=== PATIENT | male | born 1990 | race Caucasian/White ===

== ENCOUNTER 2025-08-16 05:41 | Inpatient (IN) ==
[2025-08-16 06:29] LABS: Hematocrit (blood only) 44.0 % (42.0-52.0); Hemoglobin 14.8 g/dL (14.0-18.0); Immature Granulocytes # (auto) 0.05 K/uL (0.01-0.20); Immature Granulocytes % (auto) 0.5 %; Mean Corpuscular Hemoglobin 28.5 pg (25.0-34.0); Mean Corpuscular Volume 84.8 fL (80.0-100.0); Platelet Count 263 K/uL (130-400); RDW Standard Deviation 39.4 fL (36.4-46.3); Red Blood Count 5.19 M/uL (4.70-6.10); White Blood Count 10.22 K/ul (4.8-10.8)
[2025-08-16 06:34] LABS: Appearance Urine Clear (Clear); Glucose Urine UA Negative (Negative)
[2025-08-16 06:45] LABS: Acetaminophen < 3 ug/ml (10-30); Salicylate < 3.0 mg/dl (3.0-30)
[2025-08-16 06:47] LABS: Alanine Aminotransferase 24.0 U/L (7-52); Albumin Globulin Ratio 1.8 (0.9-2); Albumin Level 4.8 gm/dl (3.4-5.0); Alkaline Phosphatase 66.0 U/L (34-104); Anion Gap 10.0 (3-11); Bilirubin,Total 0.7 mg/dl (0.2-1.0); Blood Urea Nitrogen 14.0 mg/dl (6-23); Calcium 9.8 mg/dl (8.6-10.3); Carbon Dioxide 25.0 mmol/L (21-32); Chloride 103.0 mmol/L (98-107); Creatinine Clr Calc Pharmacy 118.3 ml/min; Globulin 2.7 gm/dl (2.5-4.0); Glucose 144.0 mg/dl (70-99(Fasting)); Potassium 3.7 mmol/L (3.5-5.1); Sodium 138.0 mmol/L (136-145); Total Protein 7.5 gm/dl (6.0-8.3)
[2025-08-16 07:03] LABS: Thyroid Stimulating Hormone 1.924 uIu/ml (0.300-4.500)
[2025-08-16 07:11] LABS: Amphetamines+Metham, Urine Neg (Neg); MDMA (Ecstacy), Urine Neg (Neg); Marijuana, Urine Neg (Neg)
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
--- NOTE | 2025-08-16 09:36 | CT Scan Report ---
CT SCAN OF THE BRAIN WITHOUT IV CONTRAST CLINICAL HISTORY: Altered mental status. COMPARISON STUDY: None. TECHNIQUE: Unenhanced axial CT scan of the brain was performed from the vertex to the skull base. A dose lowering technique was utilized adhering to the principles of ALARA. CT DOSE: 625.8 mGy.cm FINDINGS: Brain parenchyma: No acute intracranial hemorrhage, midline shift or mass effect is present. Molina-whi te matter differentiation is preserved. There are no extra-axial fluid collections. There are no find ings to suggest acute dural sinus thrombosis or acute territorial infarct. Ventricles, sulci, cisterns: There is no hydrocephalus. The basal cisterns are patent. Calvarium: Unremarkable. Sinuses and mastoids: The visualized paranasal sinuses are clear. Moderate bilateral mastoid effusion s are present. Orbits: The bony orbits are grossly intact. IMPRESSION: 1. No acute intracranial findings. 2. Moderate bilateral mastoid effusions. ACT 112: Negative or not required by law. Electronically signed by: Isaac Frazier M.D. 08/16/2025 9:35 AM
[2025-08-16] MEDS ORDERED: ALUMINUM/MAGNESIUM SUSP 30 ML UDC PO PRN (13:03)
[2025-08-16] MEDS ORDERED: MAGNESIUM HYDROXIDE SUSP 30 ML UDC PO PRN (13:03)
[2025-08-16] MEDS ORDERED: SODIUM CHLORIDE 0.65% NA SOLN 45 ML (OCEAN) PRN (13:03)
[2025-08-16] MEDS ORDERED: ACETAMINOPHEN 325 MG TAB PO PRN (13:03)
[2025-08-16] MEDS ORDERED: BISMUTH SUBSALICYLATE 262 MG CHEW PO PRN (13:03)
[2025-08-16] MEDS ORDERED: LORazepam 0.5 MG TAB PO PRN (13:06)
--- NOTE | 2025-08-16 15:48 | History & Physical ---
Date of Service August 16, 2025 Impression / Recommendations Impression Mr. Morales is a 34-year-old man with history of depression, who now presents with features of maryan, including insomnia, talkativeness, flight of ideas, grandiosity, hypersexuality, and hyperreligiosity. Also has an element of paranoia, but did not make any homicidal statements. Fixated on protecting his family though, does have access to guns. Appropriate for admission to the behavioral health unit. He is admitted on a voluntary status. Symptoms are highly consistent with a manic episode, patient has a family history of bipolar disorder. However, the differential diagnosis could include schizophrenia (less likely due to lack of negative symptoms and preservation of affect), substance-induced mood disorder (although UDS was negative, does not rule out intoxication from all synthetic substances), or a medical condition such as hyperthyroidism (TSH normal), intracranial mass (CT head was normal), or in rare cases, pheochromocytoma (blood pressure is elevated, but heart rate is normal. If symptoms change, we could check for urine metanephrines). Since patient was reporting concern about an STD, I will also check an RPR for thoroughness sake, but I do not expect this to be high yield. Presently, no neurologic symptoms to suggest seizure or encephalitis. Level of lability and (mild) agitation did improve with administration of Zyprexa in the emergency room. I discussed scheduling this medication at bedtime, to help him sleep and stabilize his mood. He is currently declining medication, stating "I do not think they need it." I explained that the medicine would be ordered and offered to him, and encouraged him to accept it. Overall, I spent a total of 75 minutes on this patient's care, including review of chart/records, direct evaluation of the patient, ordering medication, coordination with nursing, interdisciplinary team meeting, and documentation. (1) Bipolar 1 disorder, current or most recent episode manic, severe: Plan 08/16/25: Admit to [facility] on a 201 commitment. encouraged to participate in milieu treatment and group therapy schedule Zyprexa 10 mg nightly as needed Zyprexa and Ativan also ordered in case of agitation typical unit PRNs are also ordered, including Vistaril, Tylenol, and medications for GI upset suicide risk is moderate, since the maryan does increase impulsivity, his mood is labile, and he does have a history of suicide attempts. suicide risk precautions ordered (every 15 minute checks) Suicide Risk Level Suicide Risk Level: Moderate (q15 min suicide checks) Suicide Risk Level Comments: suicide Risk Level: Moderate (q15 min suicide checks) Suicide Risk Level Comments: Moderate due to History of suicide attempts, labile mood and impulsivity but feels safe in the hospital, able to contract for safety and agrees to let staff know should if plan or intent develops, or if patient feels unable to remain safe. Risk Factors Assessment Male: Yes : Yes Do You Have Access To A Gun?: Yes Health Problems: No Mental Health Diagnoses: Yes Substance Use Disorders: No Previous Attempt: Yes Family History of Suicide: No Previous Psychiatric Hospitalization: Yes Hopelessness: No Protective Factors Assessment Jainism Beliefs: Yes : Yes Responsible for Young Children: Yes Employed: Yes ([employer]) Stable Relationships: Yes Supportive Family: Yes Good Rapport with Provider: No Psychiatric History Identifying Data CHAPARRITA MORALES is a 34-year-old M who currently lives with his and 2 children, has a history of depression, and was admitted on 08/16/25 13:03 on a 201 voluntary commitment for new onset paranoia, grandiosity and insomnia. Chief Complaint " I am not manic, I was just trying to protect my family". History of Present Illness Patient is a 34-year-old man with a reported history of depression and 1 past psychiatric hospitalization, but not previously known to this department. He was brought to the emergency room by his , due to recent changes in behavior. Once in the emergency room, patient fixated on the possibility of having sexually transmitted disease, since he has a spot on his groin that has been present for more than 10 years. It then came out that he has been more paranoid with some reckless behavior. He has been spending time in the [place] thinking about protecting the family, then locked himself out of the house and broke glass in the doors in order to let himself in, resulting in a cut to his left thumb. In the emergency room, it was noted that he was tangential and hyperverbal. He agreed to sign in on a voluntary for psychiatric valuation. He did receive Zyprexa 5 mg p.o. downstairs before arrival to the [facility]. I met with the patient privately in his room. He says "if I solve my own set up, I know I be smart and it would mean God is giving me a second chance." He spoke of many topics, including his past psychiatric treatment and history of suicide attempts. Also spoke about his childhood and time in the . He says "I have struggled with every single addiction", referring to food, pornography, tobacco, alcohol and marijuana. He said he has not used any substances recently though. Several times, he made hypersexual statements, but was apologetic about it. He also spoke frequently about God and "[place] being my Lord and Savior." He was listening to Muslim music in his room, said it helps him deal with stress. He was guarded about the paranoid content. He said a friend took him off to something (which she would not clarify), and that the patient then sent messages to 2 people, threatening to press charges if they "do anything." He then believes he saw someone stalking him 2 days ago. They were in their car outside his [place]ian[place] and "looked like a ghost" when they saw him walk by. Also believes he saw someone in the [place] when it was dark walking around with a headlamp on. This then led to him patrolling the wells near his house. He denies making any plans to harm anyone. He also denies suicidal ideation. Says he can "see in the shadows", does not clearly is having any true visual hallucinations. Also denies auditory hallucinations. in addition to paranoia about being stopped, he is possibly delusional about the legitimacy of his sons (there from his first marriage, and ways he may not be the father). Since on the unit, he has had a slightly labile affect, with some sudden irritability towards certain staff. He is hyperverbal and tangential, but has remained relatively calm so far. Discussed the idea that he may be experiencing a manic episode, and may have bipolar disorder. He said "I really do not think that is true", and believes he will not need to take medication. Past Psychiatric History Previous Psych History: Patient reports history of 2 suicide attempts. Says the first was the night after he lost custody of his kids. The details of that are unclear, but he says he did spend 3-1/2 months in care home for a crime he did not commit around that time. He said he tried to kill himself by drinking a whole bottle of Everclear. The second suicide attempt he said was after he found his adoptive mother who had . Did not give details of that suicide attempt, as he then tangentially talked about how that was also the time he returned to his timbo and began discussing miracles. He has 1 past hospitalization at [facility], in July 2022, for suicide total ideation (no attempt at that time). At that time, they started him on Wellbutrin and Prozac which he said made him feel "spacey". He does report a history of outpatient therapy, both as a child, and later as an adult after his 2 boys hospitalization. He has not following with any outpatient treatment currently. Reports he has been addicted to tobacco and alcohol in the past, and has tried marijuana. Current Psychiatric Diagnosis: Depression Do You Have Access To A Gun?: Yes History of Previous Suicide Attempt: Yes Past Medication Trials: Wellbutrin, Prozac Past Head Trauma/Neuro History none reported Allergies Allergy/AdvReac Type Severity Reaction Status Date / Time No Known Allergies Allergy Unverified 03/09/19 10:46 Family History Family History of: Doesn't Know Family Mental Health History Comment: patient is adopted, but believes his biological father had bipolar disorder, schizophrenia and marijuana use. Alcohol History Hx of Alcohol Use Over the Past 12 Months: Yes (Occasionally) AUDIT Total Score: 1 Smoking Use Have You Smoked or Used Tobacco Products in the Last 30 Days: No Smoking Status: Never smoker Substance History Hx of Prescription Med Misuse Over the Past 12 Months: No Hx of Over the Counter Med Misuse Over the Past 12 Months: No Hx of Inhalent Misuse Over the Past 12 Months: No Hx of Organic Substance Use Over the Past 12 Months: No Hx of Illegal Substances/Street Drug Use Over Past 12 Months: No Problems as a Result of Past Substance Use Comments: States he was discharged from the [employer] dishonorably 15 years ago Personal History Living Arrangements: Home Living Arrangements Comments: lives with current , and his 2 sons which are from his first marriage. Childhood: patient and his sister were removed from their biological parents custody when patient was 6 months old. He believes there was neglect. He remained in foster care from 6 months to 7 years. He said "it was not easy." He was adopted at age 7. He calls those parents mom and dad. His father was a police communications dispatcher. 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, and possibly combat in the Patient History Medical History (Updated 08/16/25 @ 15:38 by Franchesca Donovan DO) No significant past medical history Family History Other No significant family history Denies family history of Heart disease Hypertension Social History Smoking Status: Never smoker Preferred Language: Kazakh Communication Ability: Effective Concept Artist Required: No Beliefs That Will Affect Care: None marital status: Single Current Living Situation: Alone current occupational status: employed Feels Safe at Home: Yes Gender Identity: Male Assistive Devices: None Review of Systems Review of Systems: All systems reviewed & are unremarkable except as noted in HPI & below Physical Exam Psychiatric: Orientation: alert and oriented x 3 Apperance: appropriately dressed, appropriately groomed and appeared stated age Eye Contact: good eye contact Motor Behavior: steady gait and station and no abnormal motor movements Speech: + pressured speech Hyperverbal. Not loud. Affect: + labile affect Blunted at times, elevated at others, and with sudden irritability fluctuates. Suspicious at times, irritable at other times, elevated or euthymic at others Thought Process: + tangential thought process, + flight of ideas and + looseness of associations Thought Content: + paranoid and + delusions jew preoccupation, some grandiosity Suicidal Thoughts: denies suicidal thoughts, denies suicidal plan and denies suicidal intent Homicidal Thoughts: denies homicidal thoughts, denies homicidal plan and denies homicidal intent Hallucinations: no auditory hallucinations and no visual hallucinations Cognition: recent memory grossly intact, remote memory grossly intact and language grossly intact; + attention not intact Estimated Intelligence: average estimated intelligence and consistent with education level Insight: + impaired insight Judgment: + impaired judgement Vital Signs (Past 24 Hours): Last Vital Signs Temp 36.8 C 08/16/25 14:24 Pulse 76 08/16/25 14:24 Resp 18 08/16/25 14:24 BP 133/83 08/16/25 14:24 Pulse Ox 98 08/16/25 14:24 O2 Del Method Room Air 08/16/25 14:24 Physical Examination: A physical exam was performed in the ED by Camacho Rubio MD for the purposes of medical clearance. I accept that physical as correct and adequate for the purposes of the inpatient physical exam. Results & Data ([facility]) Laboratory Results Laboratory Results - last 24 hr 08/16/25 08/16/25 08/16/25 06:02 06:15 13:05 WBC 10.22 RBC 5.19 Hgb 14.8 Hct 44.0 MCV 84.8 MCH 28.5 MCHC 33.6 RDW Std Deviation 39.4 RDW Coeff of Bravo 12.8 Plt Count 263 MPV 10.9 Immature Gran % (Auto) 0.5 Neut % (Auto) 75.0 Lymph % (Auto) 15.1 [facility] % (Auto) 8.6 Eos % (Auto) 0.2 Baso % (Auto) 0.6 Neut # (Auto) 7.67 H Lymph # (Auto) 1.54 [facility] # (Auto) 0.88 H Eos # (Auto) 0.02 Baso # (Auto) 0.06 Immature Gran # (Auto) 0.05 Sodium 138 Potassium 3.7 Chloride 103 Carbon Dioxide 25 Anion Gap 10 BUN 14 Creatinine 1.15 Est Cr Clr Drug Dosing 118.3 eGFR 84.59 BUN/Creatinine Ratio 12.2 Glucose 144 H Calcium 9.8 Total Bilirubin 0.7 AST 23 ALT 24 Alkaline Phosphatase 66 Total Protein 7.5 Albumin 4.8 Globulin 2.7 Albumin/Globulin Ratio 1.8 TSH 1.924 Urine Color Yellow Urine Appearance Clear Urine pH 6.5 Ur Specific [place] 1.003 Urine Protein Negative Urine Glucose (UA) Negative Urine Ketones Negative Urine Blood Negative Urine Nitrite Negative Urine Bilirubin Negative Urine Urobilinogen Negative Ur Leukocyte Esterase Negative Urine Comment Salicylates < 3.0 L Urine Opiates Screen Neg Ur Methadone, Qual Neg Urine Fentanyl Screen Neg Acetaminophen < 3 L Urine Barbiturates Neg Ur Phencyclidine (PCP) Neg U Amphetamin/Meth Scrn Neg MDMA (Ecstasy) Screen Neg U Benzodiazepines Scrn Neg Ur Cocaine Metabolite Neg U Marijuana (THC) Screen Neg Ethyl Alcohol mg/dL < 10.0 C.trachomatis RNA Pending N.gonorrhoeae RNA Pending SARS-CoV-2, RNA, NAAT NEGATIVE Current Inpatient Medications Current Inpatient Medications: Current Inpatient Medications Acetaminophen (Acetaminophen 325 Mg Tab) 650 mg PO Q4H PRN PRN Reason: Headache or Minor Fever Stop: 09/15/25 13:02 Al Hydrox/Mg Hydrox/Simethicone (Aluminum/Magnesium Susp 30 Ml Udc) 30 ml PO Q4H PRN PRN Reason: GI Upset Stop: 09/15/25 13:02 Bismuth Subsalicylate (Bismuth Subsalicylate 262 Mg Chew) 2 tab PO Q30M PRN PRN Reason: Loose Stool/Diarrhea Stop: 09/15/25 13:02 Hydroxyzine HCl (Hydroxyzine Hcl 25 Mg Tab) 50 mg PO HSZ PRN PRN Reason: Insomnia Stop: 09/15/25 13:02 Hydroxyzine HCl (Hydroxyzine Hcl 25 Mg Tab) 25 mg PO Q4H PRN PRN Reason: Anxiety Stop: 09/15/25 13:02 Lorazepam (Lorazepam 0.5 Mg Tab) 0.5 mg PO Q6 PRN PRN Reason: Severe Anxiety Stop: 09/15/25 13:05 Magnesium Hydroxide (Magnesium Hydroxide Susp 30 Ml Udc) 30 ml PO DAILY PRN PRN Reason: Constipation Stop: 09/15/25 13:02 Olanzapine (Olanzapine 5 Mg Tablet) 5 mg PO Q6 PRN PRN Reason: Agitation Stop: 09/15/25 13:04 Sodium Chloride (Sodium Chloride 0.65% Na Soln 45 Ml ([place])) 1 - 2 sprays NA PRN PRN PRN Reason: Nasal Dryness/Congestion Stop: 09/15/25 13:02
[2025-08-16] MEDS: LORazepam 1 MG TAB PO SCH (18:00)
[2025-08-16] MEDS: OLANZapine 10 MG TAB PO SCH (18:47)
[2025-08-17] MEDS: LORazepam 1 MG TAB PO PRN (01:38)
--- NOTE | 2025-08-17 08:50 | Psychiatric Progress Note ---
Date of Service August 17, 2025 Impression / Recommendations Impression Mr. Bae is a 34-year-old man with history of depression, who now presents with features of maryan, including insomnia, talkativeness, flight of ideas, grandiosity, hypersexuality, and hyperreligiosity. Also has an element of paranoia, but did not make any homicidal statements. Fixated on protecting his family though, does have access to guns. Appropriate for admission to the behavioral health unit. He is admitted on a voluntary status. Symptoms are highly consistent with a manic episode, patient has a family history of bipolar disorder. However, the differential diagnosis could include schizophrenia (less likely due to lack of negative symptoms and preservation of affect), substance-induced mood disorder (although UDS was negative, does not rule out intoxication from all synthetic substances), or a medical condition such as hyperthyroidism (TSH normal), intracranial mass (CT head was normal), or in rare cases, pheochromocytoma (blood pressure is elevated, but heart rate is normal. If symptoms change, we could check for urine metanephrines). Since patient was reporting concern about an STD, I will also check an RPR for thoroughness sake, but I do not expect this to be high yield. Presently, no neurologic symptoms to suggest seizure or encephalitis. A: in the evening yesterday, I added Ativan 1 mg 3 times daily after learning that he had impulsive behavior and was found in another peer's room. He did sleep well overnight after getting several doses of medication in the evening. I continue to educate about symptoms that indicate bipolar disorder, and my recommendation for medication management. Strongly encouraged him to take medicine, and let me know if there are any side effects, and we can change to medicine to something more tolerable to him. However, I do not think the grogginess this morning was necessarily a side effect, since he was catching up after 3 days of not sleeping. Patient said he will consider it, and is aware that staff will be continue to offer meds to him. Overall, I spent a total of 45 minutes on this patient's care, including review of chart/records, direct evaluation of the patient, ordering medication, coordination with nursing, interdisciplinary team meeting, and documentation. (1) Bipolar 1 disorder, current or most recent episode manic, severe: Plan 08/17/25: Continue Ativan 1 mg 3 times daily and Zyprexa 10 mg nightly as needed Ativan Zyprexa also ordered. patient did except medicines yesterday, but denied them this morning. If he continuously denies medication we may need to pursue an involuntary commitment and forced medications, Given the severity of his symptoms. Staff is gathering collateral from his today. 08/16/25: Admit to [facility] on a 201 commitment. encouraged to participate in milieu treatment and group therapy schedule Zyprexa 10 mg nightly as needed Zyprexa and Ativan also ordered in case of agitation typical unit PRNs are also ordered, including Vistaril, Tylenol, and medications for GI upset suicide risk is moderate, since the maryan does increase impulsivity, his mood is labile, and he does have a history of suicide attempts. suicide risk precautions ordered (every 15 minute checks) Suicide Risk Level Suicide Risk Level: Moderate (q15 min suicide checks) Suicide Risk Level Comments: suicide Risk Level: Moderate (q15 min suicide checks) Suicide Risk Level Comments: Moderate due to History of suicide attempts, labile mood and impulsivity but feels safe in the hospital, able to contract for safety and agrees to let staff know should if plan or intent develops, or if patient feels unable to remain safe. 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) Stable Relationships: Yes Supportive Family: Yes Good Rapport with Provider: No Interval History Identifying Information Mr. Bae is a 34-year-old man with history of depression, who now presents with features of maryan, including insomnia, talkativeness, flight of ideas, grandiosity, hypersexuality, and hyperreligiosity. He is admitted on a voluntary status. Chief Complaint " what if what I predict is real". Review of Systems Sleep Information Total Hours of Sleep: 8.5 Meal Information Percent Meal Consumed - Dinner: 75 Subjective Subjective Patient was seen & assessed and interval progress reviewed with nursing and social work per report: elopement precautions added yesterday was pounding on doors and punching codes into door - said someone was going to be murdered then said he needs to "elope" (ie - get ) and make love in order to prevent the murder had a difficult evening - poor boundaries, hypersexual needed redirected out of female peer's room slept 8.5hours , after taking zyprexa 5mg PRn and scheduled 10mg, ativan 1mg scheduled and later 0.5mg PRN refusing meds this AM says he is "fine, just tired" but also won't lay down to rest labile affect - irritable, tearful frequently at the nurse's station taking apart remote, headphones, etc attended self-awareness group did call to check on him last evening I met with the patient privately in the group room, per his request. No other patients were present. He said "I have been feeling really good." He continues to feel that he is not manic and that the "things I am predicting are real." He believes his mother is dying his cousin and his uncle are dying, and he will be the executor to one of their states, resulting in a large sum of money coming to him. When I asked how he knows that they are dying he said "you are going to have to watch the news." Patient said he took meds last night but felt groggy this morning, so he does not want to take them again. He said he plans on his because "I never left her. Because she cannot love someone without loving yourself", and he says he just started loving himself a few days ago. patient changed topics multiple times. At 1 point, he said he is "said a bear trap" and metaphorical away to catch the people responsible for 3 murders. Another point, he said he had a bad relationship with his biological father, and that that "that is all I am going to say." He confirmed that he does believe he needs to elope/get again. Discussed that he was in a peer's room last night, and he said that he was just looking for someone to talk to, and did not "do anything bad." He expressed understanding that this absolutely cannot happen again. Physical Exam Psychiatric Orientation: alert and oriented x 3 Apperance: appropriately dressed, appropriately groomed and appeared stated age Eye Contact: good eye contact Motor Behavior: steady gait and station and no abnormal motor movements Speech: + pressured speech Affect: + labile affect Thought Process: + tangential thought process, + flight of ideas and + looseness of associations Thought Content: + paranoid and + delusions Suicidal Thoughts: denies suicidal thoughts, denies suicidal plan and denies suicidal intent Homicidal Thoughts: denies homicidal thoughts, denies homicidal plan and denies homicidal intent Hallucinations: no auditory hallucinations and no visual hallucinations Cognition: recent memory grossly intact, remote memory grossly intact and language grossly intact; + attention not intact Estimated Intelligence: average estimated intelligence and consistent with education level Insight: + impaired insight Judgment: + impaired judgement Vital Signs (Past 24 Hours) Last Vital Signs Temp 36.8 C 08/16/25 14:24 Pulse 76 08/16/25 14:24 Resp 18 08/16/25 14:24 BP 133/83 08/16/25 14:24 Pulse Ox 98 08/16/25 14:24 O2 Del Method Room Air 08/16/25 14:24 A physical exam was performed in the ED by Camacho Rubio MD for the purposes of medical clearance. I accept that physical as correct and adequate for the purposes of the inpatient physical exam. Results & Data ([facility]) Laboratory Results Laboratory Results - last 24 hr 08/16/25 08/16/25 06:15 13:05 C.trachomatis RNA Pending N.gonorrhoeae RNA Pending SARS-CoV-2, RNA, NAAT NEGATIVE Current Inpatient Medications Current Inpatient Medications: Current Inpatient Medications Acetaminophen (Acetaminophen 325 Mg Tab) 650 mg PO Q4H PRN PRN Reason: Headache or Minor Fever Stop: 09/15/25 13:02 Al Hydrox/Mg Hydrox/Simethicone (Aluminum/Magnesium Susp 30 Ml Udc) 30 ml PO Q4H PRN PRN Reason: GI Upset Stop: 09/15/25 13:02 Bismuth Subsalicylate (Bismuth Subsalicylate 262 Mg Chew) 2 tab PO Q30M PRN PRN Reason: Loose Stool/Diarrhea Stop: 09/15/25 13:02 Hydroxyzine HCl (Hydroxyzine Hcl 25 Mg Tab) 50 mg PO HSZ PRN PRN Reason: Insomnia Stop: 09/15/25 13:02 Hydroxyzine HCl (Hydroxyzine Hcl 25 Mg Tab) 25 mg PO Q4H PRN PRN Reason: Anxiety Stop: 09/15/25 13:02 Lorazepam (Lorazepam 1 Mg Tab) 1 mg PO TID DARRION Stop: 09/15/25 17:59 Last Admin: 08/16/25 20:26 Dose: 1 mg Lorazepam (Lorazepam 1 Mg Tab) 1 mg PO Q6 PRN PRN Reason: Severe Anxiety Stop: 09/15/25 13:05 Last Admin: 08/17/25 01:38 Dose: 1 mg Magnesium Hydroxide (Magnesium Hydroxide Susp 30 Ml Udc) 30 ml PO DAILY PRN PRN Reason: Constipation Stop: 09/15/25 13:02 Olanzapine (Olanzapine 5 Mg Tablet) 5 mg PO Q6 PRN PRN Reason: Agitation Stop: 09/15/25 13:04 Last Admin: 08/16/25 19:15 Dose: 5 mg Olanzapine (Olanzapine 10 Mg Tab) 10 mg PO HS DARRION Stop: 09/15/25 21:59 Last Admin: 08/16/25 20:11 Dose: Not Given Sodium Chloride (Sodium Chloride 0.65% Na Soln 45 Ml ([place])) 1 - 2 sprays NA PRN PRN PRN Reason: Nasal Dryness/Congestion Stop: 09/15/25 13:02 Mental Health & Subst Abuse Tx Therapist Name of Therapist: None Unload Associate Name of Unload Associate: None
[2025-08-17 12:27] LABS: Chlam trach RNA(Genit,Ureth,Ur Not Detected (NotDetected); GC(Neis gon)RNA(Genit,Ureth,Ur Not Detected (NotDetected)
--- NOTE | 2025-08-18 08:41 | Psychiatric Progress Note ---
Date of Service August 18, 2025 Impression / Recommendations Impression Mr. Bae is a 34-year-old man with history of depression, who now presents with features of maryan, including insomnia, talkativeness, flight of ideas, grandiosity, hypersexuality, and hyperreligiosity. Also has an element of paranoia, but did not make any homicidal statements. Fixated on protecting his family though, does have access to guns. Appropriate for admission to the behavioral health unit. He is admitted on a voluntary status. Symptoms are highly consistent with a manic episode, patient has a family history of bipolar disorder. However, the differential diagnosis could include schizophrenia (less likely due to lack of negative symptoms and preservation of affect), substance-induced mood disorder (although UDS was negative, does not rule out intoxication from all synthetic substances), or a medical condition such as hyperthyroidism (TSH normal), intracranial mass (CT head was normal), or in rare cases, pheochromocytoma (blood pressure is elevated, but heart rate is normal. If symptoms change, we could check for urine metanephrines). Since patient was reporting concern about an STD, I will also check an RPR for thoroughness sake, but I do not expect this to be high yield. Presently, no neurologic symptoms to suggest seizure or encephalitis. A: Ongoing maryan, but starting to get some sleep. In interest of getting patient off Ativan before discharge, going to decrease the dose to 0.5 mg 3 times daily. I will also increase Zyprexa, adding a morning dose of 5 mg and keeping the evening at 10 mg. I also discussed with the patient that his blood pressure has been consistently elevated. Reviewed risks and benefits of starting propranolol, patient was agreeable. Start 10 mg 3 times daily. I also gave him an order for patient be allowed to cut his nails with supervision. Medically necessary private room due to hypersexuality and impulsive behavior. Overall, I spent a total of 40 minutes on this patient's care, including review of chart/records, direct evaluation of the patient, ordering medication, coordination with nursing, interdisciplinary team meeting, and documentation. (1) Bipolar 1 disorder, current or most recent episode manic, severe: Plan 08/18/25: Decrease his Ativan to 0.5 mg 3 times daily. Add Zyprexa 5 mg every morning, and continue 10 mg nightly start propranolol 10 mg 3 times daily 08/17/25: Continue Ativan 1 mg 3 times daily and Zyprexa 10 mg nightly as needed Ativan Zyprexa also ordered. patient did accept medicines yesterday, but denied them this morning. If he continuously denies medication we may need to pursue an involuntary commitment and forced medications, Given the severity of his symptoms. Staff is gathering collateral from his today. 08/16/25: Admit to [facility] on a 201 commitment. encouraged to participate in milieu treatment and group therapy schedule Zyprexa 10 mg nightly as needed Zyprexa and Ativan also ordered in case of agitation typical unit PRNs are also ordered, including Vistaril, Tylenol, and medications for GI upset suicide risk is moderate, since the maryan does increase impulsivity, his mood is labile, and he does have a history of suicide attempts. suicide risk precautions ordered (every 15 minute checks) Suicide Risk Level Suicide Risk Level: Moderate (q15 min suicide checks) Suicide Risk Level Comments: suicide Risk Level: Moderate (q15 min suicide checks) Suicide Risk Level Comments: Moderate due to History of suicide attempts, labile mood and impulsivity but feels safe in the hospital, able to contract for safety and agrees to let staff know should if plan or intent develops, or if patient feels unable to remain safe. Risk Factors Assessment Male: Yes : Yes Do You Have Access To A Gun?: Yes Health Problems: No Mental Health Diagnoses: Yes Substance Use Disorders: No Previous Attempt: Yes Family History of Suicide: No Previous Psychiatric Hospitalization: Yes Hopelessness: No Protective Factors Assessment Rastafarian Beliefs: Yes : Yes Responsible for Young Children: Yes Employed: Yes ([employer]) Stable Relationships: Yes Supportive Family: Yes Good Rapport with Provider: No Interval History Identifying Information Mr. Bae is a 34-year-old man with history of depression, who now presents with features of maryan, including insomnia, talkativeness, flight of ideas, grandiosity, hypersexuality, and hyperreligiosity. He is admitted on a voluntary status. Chief Complaint "I am doing good, no complaints.". Review of Systems Sleep Information Total Hours of Sleep: 9.75 Meal Information Percent Meal Consumed - Breakfast: 100 Percent Meal Consumed - Lunch: 100 Percent Meal Consumed - Dinner: 100 Subjective Subjective Patient was seen & assessed and interval progress reviewed with treatment team per report: declined meds in AM then did take afternoon and HS meds. still has inappropriate boundaries - knocks on peer's doors continues to be delusional at times still voicing concern that his sons aren't his, and that he might want a divorce napped during self-awareness group slept 9.75 hours thought he was going to be discharged at midnight last night ativan PRN at 01:38 accepted meds this AM without contest Patient was napping at first, I met with him shortly before lunchtime in his room. He reports he is feeling well. Denies anxiety or paranoia. He says "what worry?". Says he has except if people are going to be hurt if he cannot control it. Also says though that he has a special duty to try to convert people to Religion. He attempted to interrogate me about my beliefs and "do you have a relationship with the Lord [place]". He responded to boundary setting without issue or escalation. He said getting rest has been helpful. He compared me to a celebrity that he thought I looks like (Mahogany Farris, this may be related to seeing him anytime but I think maybe is Mahogany). He acknowledges he had a good visit with his , but still is unsure whether the marriage will continue. Physical Exam Psychiatric Orientation: alert and oriented x 3 Apperance: appropriately dressed, appropriately groomed and appeared stated age Eye Contact: good eye contact Motor Behavior: steady gait and station and no abnormal motor movements Thought Process: + looseness of associations Thought Content: + paranoid and + delusions Suicidal Thoughts: denies suicidal thoughts, denies suicidal plan and denies suicidal intent Homicidal Thoughts: denies homicidal thoughts, denies homicidal plan and denies homicidal intent Hallucinations: no auditory hallucinations and no visual hallucinations Cognition: recent memory grossly intact, remote memory grossly intact and language grossly intact Estimated Intelligence: average estimated intelligence and consistent with education level Insight: + impaired insight Judgment: + impaired judgement Vital Signs (Past 24 Hours) Last Vital Signs Temp 36.4 C L 08/18/25 06:00 Pulse 101 H 08/18/25 06:18 Resp 16 08/18/25 06:00 BP 157/91 H 08/18/25 06:18 Pulse Ox 95 08/18/25 06:00 O2 Del Method Room Air 08/18/25 06:00 Results & Data ([facility]) Laboratory Results Laboratory Results - last 24 hr 08/16/25 06:15 C.trachomatis RNA Not Detected N.gonorrhoeae RNA Not Detected Current Inpatient Medications Current Inpatient Medications: Current Inpatient Medications Acetaminophen (Acetaminophen 325 Mg Tab) 650 mg PO Q4H PRN PRN Reason: Headache or Minor Fever Stop: 09/15/25 13:02 Al Hydrox/Mg Hydrox/Simethicone (Aluminum/Magnesium Susp 30 Ml Udc) 30 ml PO Q4H PRN PRN Reason: GI Upset Stop: 09/15/25 13:02 Bismuth Subsalicylate (Bismuth Subsalicylate 262 Mg Chew) 2 tab PO Q30M PRN PRN Reason: Loose Stool/Diarrhea Stop: 09/15/25 13:02 Hydroxyzine HCl (Hydroxyzine Hcl 25 Mg Tab) 50 mg PO HSZ PRN PRN Reason: Insomnia Stop: 09/15/25 13:02 Hydroxyzine HCl (Hydroxyzine Hcl 25 Mg Tab) 25 mg PO Q4H PRN PRN Reason: Anxiety Stop: 09/15/25 13:02 Lorazepam (Lorazepam 1 Mg Tab) 1 mg PO TID DARRION Stop: 09/15/25 17:59 Last Admin: 08/18/25 07:49 Dose: 1 mg Lorazepam (Lorazepam 1 Mg Tab) 1 mg PO Q6 PRN PRN Reason: Severe Anxiety Stop: 09/15/25 13:05 Last Admin: 08/17/25 01:38 Dose: 1 mg Magnesium Hydroxide (Magnesium Hydroxide Susp 30 Ml Udc) 30 ml PO DAILY PRN PRN Reason: Constipation Stop: 09/15/25 13:02 Nicotine Polacrilex (Nicotine Polacrilex 2 Mg Gum) 1 piece MT Q2H PRN PRN Reason: nicotine craving Stop: 09/16/25 13:20 Olanzapine (Olanzapine 5 Mg Tablet) 5 mg PO Q6 PRN PRN Reason: Agitation Stop: 09/15/25 13:04 Last Admin: 08/18/25 08:02 Dose: 5 mg Olanzapine (Olanzapine 10 Mg Tab) 10 mg PO HS DARRION Stop: 09/15/25 21:59 Last Admin: 08/17/25 20:38 Dose: 10 mg Sodium Chloride (Sodium Chloride 0.65% Na Soln 45 Ml ([place])) 1 - 2 sprays NA PRN PRN PRN Reason: Nasal Dryness/Congestion Stop: 09/15/25 13:02 Mental Health & Subst Abuse Tx Psychiatrist Name of Psychiatrist: [facility] Psychiatric Appointment Comment: previously a patient Therapist Name of Therapist: [facility] Therapy Appointment Comment: previously a patient 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
[2025-08-18] MEDS: LORazepam 0.5 MG TAB PO SCH (13:41)
[2025-08-18] MEDS: PROPRANOLOL HCL 10 MG TAB PO SCH (13:41)
[2025-08-19 09:14] LABS: Cholesterol 198.0 mg/dl (0-200); HDL Cholesterol 42.0 mg/dl; Triglycerides 142.0 mg/dl (0-150)
[2025-08-19 10:38] LABS: Hemoglobin A1C 5.3 % (4.5-5.6)
--- NOTE | 2025-08-19 16:00 | Psychiatric Progress Note ---
Date of Service August 19, 2025 Impression / Recommendations Impression Mr. Bae is a 34-year-old man with history of depression, who now presents with features of maryan, including insomnia, talkativeness, flight of ideas, grandiosity, hypersexuality, and hyperreligiosity. Also has an element of paranoia, but did not make any homicidal statements. Fixated on protecting his family though, does have access to guns. Appropriate for admission to the behavioral health unit. He is admitted on a voluntary status. Symptoms are highly consistent with a manic episode, patient has a family history of bipolar disorder. A: Patient continues to be intrusive with peers and labile. Concern for some grandiosity. Presents limited insight into his condition and presentation. Demonstrating a decreased need for sleep. Concern for manic episode with classic presentation. Continues to have disrupted sleep and requiring PRNs for anxiety and agitation management. Patient has complaints of sharp testicular pain that is positional and reports relatively new onset. Medically necessary private room due to hypersexuality and impulsive behavior. Overall, I spent a total of 40 minutes on this patient's care, including review of chart/records, direct evaluation of the patient, ordering medication, coordination with nursing, interdisciplinary team meeting, gathered collateral from pt's family and documentation. (1) Bipolar 1 disorder, current or most recent episode manic, severe: Plan 08/19/2025: Increase lorazepam to 2 mg at bedtime Increase Olanzapine to 15mg at bedtime Hospitalist consult for urogenital evaluation 08/17/25: Continue Ativan 1 mg 3 times daily and Zyprexa 10 mg nightly as needed Ativan Zyprexa also ordered. patient did except medicines yesterday, but denied them this morning. If he continuously denies medication we may need to pursue an involuntary commitment and forced medications, Given the severity of his symptoms. Staff is gathering collateral from his today. 08/17/25: Continue Ativan 1 mg 3 times daily and Zyprexa 10 mg nightly as needed Ativan Zyprexa also ordered. patient did except medicines yesterday, but denied them this morning. If he continuously denies medication we may need to pursue an involuntary commitment and forced medications, Given the severity of his symptoms. Staff is gathering collateral from his today. 08/16/25: Admit to [facility] on a 201 commitment. encouraged to participate in milieu treatment and group therapy schedule Zyprexa 10 mg nightly as needed Zyprexa and Ativan also ordered in case of agitation typical unit PRNs are also ordered, including Vistaril, Tylenol, and medications for GI upset suicide risk is moderate, since the maryan does increase impulsivity, his mood is labile, and he does have a history of suicide attempts. suicide risk precautions ordered (every 15 minute checks) Suicide Risk Level Suicide Risk Level: Moderate (q15 min suicide checks) Suicide Risk Level Comments: suicide Risk Level: Moderate (q15 min suicide checks) Suicide Risk Level Comments: Moderate due to History of suicide attempts, labile mood and impulsivity but feels safe in the hospital, able to contract for safety and agrees to let staff know should if plan or intent develops, or if patient feels unable to remain safe. Risk Factors Assessment Male: Yes : Yes Do You Have Access To A Gun?: Yes Health Problems: No Mental Health Diagnoses: Yes Substance Use Disorders: No Previous Attempt: Yes Family History of Suicide: No Previous Psychiatric Hospitalization: Yes Hopelessness: No Protective Factors Assessment Oriental Orthodox Beliefs: Yes : Yes Responsible for Young Children: Yes Employed: Yes ([employer]) Stable Relationships: Yes Supportive Family: Yes Good Rapport with Provider: No Interval History Identifying Information Mr. Bae is a 34-year-old man with history of depression, who now presents with features of maryan, including insomnia, talkativeness, flight of ideas, grandiosity, hypersexuality, and hyperreligiosity. He is admitted on a voluntary status. Chief Complaint Maryan, psychosis Review of Systems Sleep Information Total Hours of Sleep: 5.5 Sleep Comments: Broken up sleep. Meal Information Percent Meal Consumed - Breakfast: 100 Percent Meal Consumed - Lunch: 100 Percent Meal Consumed - Dinner: 100 Subjective Subjective Patient was seen & assessed and interval progress reviewed with treatment team nursing and social work The patient reports being here because he needed a "blood test for STDs". He reports being worried for his child safety and that he lost sleep for a few days. 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 He reports the book is "very detailed" and shows me what he wrote. As noted in the book there are some disorganized s treams of thoughts and many hypothetical scenarios including one where somebody staged murder. The general theme of his book is reflecting on past traumas. He reports sleeping well and that his "thoughts are more direct". He discusses recent stressors including finding out that his ex- was cheating on him while he was away in the and that there may have been possible incest in the family. At times in the interview, he would request reassurance we are aligned on his care. He denies physical symptoms of anxiety including shortness of breath or chest pain. He denies having any kind of mental anxiety or anxious ruminations. He reports past PTSD and depression diagnoses and was at 1 point on Wellbutrin 75 mg and up to 40 mg of Prozac however he stopped the medications and "self weaned" in July 2024. Rates energy 5 out of 10. He reports a plan to go back to work and spend time with his children. He reports past alcohol problem last in 2018, currently drinks however denies excess consumption. Says he is here for a medical reason and is asking for investigation into a mass in one of his testicles that occasionally causes pain. Pt's called with pt permission (DELORES [phone]) 20 min: updated about care plan. discussed early onset of depression in his teenage years. family h/o bipolar disorder. no past maryan. Explained symptoms, diagnoses, estimated length of stay, prognosis, and medications. Physical Exam Mental Examination Appearance: Unkempt Eye Contact: Maintains Eye Contact Motor Behavior: Pacing and Restless Speech: Tangential and Rambling Mood: Euthymic and Calm Affect: Congruent and Constricted Thought Process: Tangential Hallucinations: None Insight: Poor Judgement: Poor Vital Signs (Past 24 Hours) Last Vital Signs Temp 36.8 C 08/18/25 20:45 Pulse 56 L 08/19/25 13:43 Resp 18 08/19/25 06:36 BP 124/80 08/19/25 13:43 Pulse Ox 98 08/19/25 06:36 O2 Del Method Room Air 08/19/25 06:36 A physical exam was performed in the ED by Camacho Rubio MD for the purposes of medical clearance. I accept that physical as correct and adequate for the purposes of the inpatient physical exam. Results & Data ([facility]) Laboratory Results Laboratory Results - last 24 hr 08/19/25 08:18 Estimat Average Glucose 105 Hemoglobin A1c 5.3 Triglycerides 142 Cholesterol 198 LDL Cholesterol, Calc 128 VLDL Cholesterol, Calc 28 HDL Cholesterol 42 Cholesterol/HDL Ratio 4.7 Current Inpatient Medications Current Inpatient Medications: Current Inpatient Medications Acetaminophen (Acetaminophen 325 Mg Tab) 650 mg PO Q4H PRN PRN Reason: Headache or Minor Fever Stop: 09/15/25 13:02 Al Hydrox/Mg Hydrox/Simethicone (Aluminum/Magnesium Susp 30 Ml Udc) 30 ml PO Q4H PRN PRN Reason: GI Upset Stop: 09/15/25 13:02 Bismuth Subsalicylate (Bismuth Subsalicylate 262 Mg Chew) 2 tab PO Q30M PRN PRN Reason: Loose Stool/Diarrhea Stop: 09/15/25 13:02 Hydroxyzine HCl (Hydroxyzine Hcl 25 Mg Tab) 50 mg PO HSZ PRN PRN Reason: Insomnia Stop: 09/15/25 13:02 Hydroxyzine HCl (Hydroxyzine Hcl 25 Mg Tab) 25 mg PO Q4H PRN PRN Reason: Anxiety Stop: 09/15/25 13:02 Lorazepam (Lorazepam 1 Mg Tab) 1 mg PO Q6 PRN PRN Reason: Severe Anxiety Stop: 09/15/25 13:05 Last Admin: 08/17/25 01:38 Dose: 1 mg Lorazepam (Lorazepam 0.5 Mg Tab) 0.5 mg PO TID [facility] Stop: 09/17/25 13:59 Last Admin: 08/19/25 13:42 Dose: 0.5 mg Lorazepam (Lorazepam 1 Mg Tab) 2 mg PO HS DARRION Stop: 09/18/25 21:59 Magnesium Hydroxide (Magnesium Hydroxide Susp 30 Ml Udc) 30 ml PO DAILY PRN PRN Reason: Constipation Stop: 09/15/25 13:02 Nicotine Polacrilex (Nicotine Polacrilex 2 Mg Gum) 1 piece MT Q2H PRN PRN Reason: nicotine craving Stop: 09/16/25 13:20 Olanzapine (Olanzapine 5 Mg Tablet) 5 mg PO Q6 PRN PRN Reason: Agitation or psychosis Stop: 09/15/25 13:04 Last Admin: 08/19/25 13:42 Dose: 5 mg Olanzapine (Olanzapine 5 Mg Tablet) 5 mg PO QAM [facility] Stop: 09/18/25 08:59 Last Admin: 08/19/25 07:45 Dose: 5 mg Olanzapine (Olanzapine 5 Mg Tablet) 15 mg PO HS DARRION Stop: 09/18/25 21:59 Propranolol HCl (Propranolol Hcl 10 Mg Tab) 10 mg PO TID DARRION Stop: 09/17/25 13:59 Last Admin: 08/19/25 13:43 Dose: Not Given Sodium Chloride (Sodium Chloride 0.65% Na Soln 45 Ml ([place])) 1 - 2 sprays NA PRN PRN PRN Reason: Nasal Dryness/Congestion Stop: 09/15/25 13:02 Mental Health & Subst Abuse Tx Psychiatrist Name of Psychiatrist: Joanna Psychiatrist's Date Of Appointment With Psychiatric Provider: TBD Psychiatric Appointment Comment: Blanca Ribeiro through [email or web address] must schedule due to using [facility]. Therapist Name of Therapist: Joanna Therapist's Date of Therapist Appointment: TBD Therapy Appointment Comment: Blanca Ribeiro through [email or web address] must schedule due to using [facility]. Database Security Administrator Name of Database Security Administrator: BERNIE Melinda - Blanca Ribeiro Phone Number for Database Security Administrator: Office: [phone] & Blanca Ribeiro Date of Appointment with Database Security Administrator: 08/28/25 Time of Appointment with Database Security Administrator: 12:30PM Case Management Appointment Comment: Must bring last three pay stubs. Rios to schedule [facility] appointment. Post Discharge Appointments Primary Care Physician Name Of Family Doctor/PCP: N/A Contact Information Discharge Discharge [address]: [address] [place] [address] [place] [id number]
[2025-08-19] MEDS: LORazepam 1 MG TAB PO SCH (21:05)
--- NOTE | 2025-08-20 10:41 | Hospitalist Consultation ---
Date of Consultation August 20, 2025 Assessment & Plan (1) Testicular pain, unspecified: (2) Bipolar 1 disorder, current or most recent episode manic, severe: Plan This patient is a 34-year-old male who was admitted to the behavioral health unit. We were consulted for testicular pain. #Testicular pain ? Positional Pain-free at time of consult Urinalysis ordered, pending No burning, dysuria, penile discharge, scrotal swelling, lesions, or erythema Sexually active with spouse as of a couple weeks ago Gonorrhea/chlamydia urine ordered, pending Offered to obtain scrotal ultrasound to assess for testicular mass; however, patient declined at this time We will follow-up on urinalysis, GC, and chlamydia testing Given no leukocytosis, fever, and resolution of symptoms, will defer antibiotics at this time A.m. CBC, BMP #Bipolar 1 disorder Treatment per primary team Thank you for allowing us to participate in the care of this patient, please reach out with any questions or concerns; we will continue to follow. Supervising Physician Co-Signing Physician Notes Patient seen and examined, chart reviewed, case discussed with Prashant Morales PA-C and I agree with the assessment and plan as above except as otherwise noted above. General: A&Ox3. NAD. Cooperative. HEENT: Atraumatic, normocephalic. Pulm: ymmetrical chest rise. No increase work of breathing. No respiratory distress. Seen on BHU. Reviewed PA exam and discussion. Pt is no longer having any pain. Reports pain was positional. Does still wish for UTI/G/C testing. No dysuria/discharge. Reports he was initially concerned that it was a swab test, if it can be done via UA would like this. G/C added. Denies ongoing testicular pain. Declines scrotal-US. Nontoxic appearing. Agree w above History of Present Illness Reason for Consultation: Testicular pain Requesting Physician: Dusty Shipman MD Attending Physician: Dusty Shipman MD History of Present Illness Mr. Bae is a 34-year-old male with PMH of bipolar 1 disorder. He is currently hospitalized in the behavioral health unit for maryan, insomnia, and reported homicidal statements. Hospital medicine was consulted for testicular pain. Patient first noticed the testicular pain after waking up this morning, but reports he is having 0 / 10 pain at present. This morning, he had a dull pain in the testicle with occasional radiation down the leg or up towards the stomach. He is unsure if that pain is positional. He reports it was bilateral and not worse on one side. No burning with urination, blood in his urine, penile discharge. No history of UTIs. No history of STDs to his knowledge. Patient was previously sexually active with his as of a couple weeks ago. They have had unprotected sex in the past. He denies prior history of hernias. In regard to prior injuries, patient reports he slipped and fell on ice recently and has pain in his backside, but no other injuries to the abdomen or pelvis. He denies prior history of abdominal/testicular surgeries. No fevers or dysuria. He denies any redness or lesions noticed on the scrotum. He is unsure if he has felt any new masses. Patient reports he has no allergies to medications. He is unsure if he is vaccinated for mumps/MMR. ROS: Patient endorses testicular pain (which has fully resolved). Patient denies fever, chills, night sweats, chest pain, chest palpitations, SOB, cough, abdominal pain, N/V/D, testicular swelling, burning with urination, dysuria, blood in the urine, penile discharge, or changes in bowel habits. Allergies Allergy/AdvReac Type Severity Reaction Status Date / Time No Known Allergies Allergy Unverified 03/09/19 10:46 Home Medications Medication Instructions Recorded Confirmed Type No Known Home Medications 08/16/25 08/16/25 History Patient History Medical History (Updated 08/20/25 @ 15:53 by Prashant Morales PA-C) No significant past medical history Family History Other No significant family history Denies family history of Heart disease Hypertension Social History Smoking Status: Never smoker Preferred Language: British Communication Ability: Effective Project Manager/Team Coach Required: No Beliefs That Will Affect Care: None marital status: Single Current Living Situation: Alone current occupational status: employed Feels Safe at Home: Yes Gender Identity: Male Assistive Devices: None Review of Systems Review of Systems: See HPI above Physical Exam Physical Exam: Mr. Bae is assessed with male canned food reconditioning inspector (Dr. Shipman) at bedside. General: no acute distress; non-toxic appearing; cooperative; SpO2 96% on RA : Cremasteric reflexes present bilaterally; no masses or asymmetry appreciated on exam; negative for inguinal lymphadenopathy; testicles do not appear swollen or erythematous; they are not tender to palpation; no rashes appreciated VSS Results & Data Results & Data Vital Signs (Past 12 Hours) Vital Signs Temp Pulse Pulse Resp BP Pulse Ox O2 Del Method 08/20/25 06:48 73 123/83 96 Room Air 08/20/25 06:46 36.8 C 72 18 122/78 95 Room Air PG Care Time/CCT Total # of Minutes Spent Total Time Spent with Patient: Total time spent is greater than 50% in coordination of care (as documented) at patient's floor/unit and/or counseling patient: [place] [address] IN/OBS CONSULT LVL 4,60M Patient Type Established Medical Decision Making High Complexity Diagnoses Testicular pain, unspecified N50.819 Bipolar 1 disorder, current or most recent episode manic, severe F31.13
[2025-08-20] MEDS ORDERED: NICOTINE POLACRILEX 2 MG GUM MT PRN (13:13)
--- NOTE | 2025-08-20 14:04 | Psychiatric Progress Note ---
Date of Service August 20, 2025 Impression / Recommendations Impression Mr. Bae is a 34-year-old man with history of depression, who now presents with features of maryan, including insomnia, talkativeness, flight of ideas, grandiosity, hypersexuality, and hyperreligiosity. Also has an element of paranoia, but did not make any homicidal statements. Fixated on protecting his family though, does have access to guns. Appropriate for admission to the behavioral health unit. He is admitted on a voluntary status. Symptoms are highly consistent with a manic episode, patient has a family history of bipolar disorder. A: Pt presents slightly improved sleep on medications and demonstrating a decreased need for sleep overall. Thought process appears to be more reality based today. Continues to demonstrate poor insight, poor boundaries with peers, and increased irritability. Medically necessary private room due to hypersexuality and impulsive behavior. Overall, I spent a total of 40 minutes on this patient's care, including review of chart/records, direct evaluation of the patient, ordering medication, coordination with nursing, interdisciplinary team meeting, gathered collateral from pt's family and documentation. (1) Bipolar 1 disorder, current or most recent episode manic, severe: Plan 08/20/2025: Start nicotine gum 2 mg every 2 hours as needed Urinalysis 08/19/2025: Increase lorazepam to 2 mg at bedtime Increase Olanzapine to 15mg at bedtime Hospitalist consult for urogenital evaluation 08/17/25: Continue Ativan 1 mg 3 times daily and Zyprexa 10 mg nightly as needed Ativan Zyprexa also ordered. patient did except medicines yesterday, but denied them this morning. If he continuously denies medication we may need to pursue an involuntary commitment and forced medications, Given the severity of his symptoms. Staff is gathering collateral from his today. 08/17/25: Continue Ativan 1 mg 3 times daily and Zyprexa 10 mg nightly as needed Ativan Zyprexa also ordered. patient did except medicines yesterday, but denied them this morning. If he continuously denies medication we may need to pursue an involuntary commitment and forced medications, Given the severity of his symptoms. Staff is gathering collateral from his today. 08/16/25: Admit to [facility] on a 201 commitment. encouraged to participate in milieu treatment and group therapy schedule Zyprexa 10 mg nightly as needed Zyprexa and Ativan also ordered in case of agitation typical unit PRNs are also ordered, including Vistaril, Tylenol, and medications for GI upset suicide risk is moderate, since the maryan does increase impulsivity, his mood is labile, and he does have a history of suicide attempts. suicide risk precautions ordered (every 15 minute checks) Suicide Risk Level Suicide Risk Level: Moderate (q15 min suicide checks) Suicide Risk Level Comments: suicide Risk Level: Moderate (q15 min suicide checks) Suicide Risk Level Comments: Moderate due to History of suicide attempts, labile mood and impulsivity but feels safe in the hospital, able to contract for safety and agrees to let staff know should if plan or intent develops, or if patient feels unable to remain safe. Risk Factors Assessment Male: Yes : Yes Do You Have Access To A Gun?: Yes Health Problems: No Mental Health Diagnoses: Yes Substance Use Disorders: No Previous Attempt: Yes Family History of Suicide: No Previous Psychiatric Hospitalization: Yes Hopelessness: No Protective Factors Assessment Hinduism Beliefs: Yes : Yes Responsible for Young Children: Yes Employed: Yes ([employer]) Stable Relationships: Yes Supportive Family: Yes Good Rapport with Provider: No Interval History Identifying Information Mr. Bea is a 34-year-old man with history of depression, who now presents with features of maryan, including insomnia, talkativeness, flight of ideas, grandiosity, hypersexuality, and hyperreligiosity. He is admitted on a voluntary status. Chief Complaint Maryan Review of Systems Sleep Information Total Hours of Sleep: 4.5 Sleep Comments: He was up and drowsy several times during the night. Meal Information Percent Meal Consumed - Breakfast: 100 Percent Meal Consumed - Lunch: 100 Percent Meal Consumed - Dinner: 100 Subjective Subjective Patient was seen & assessed and interval progress reviewed with treatment team nursing and social work Patient slept 4.5 hours and less disruptive than prior nights. Demonstrating poor boundary control and has been touching peers at times; Requires redirection. Nursing concern for patient having poor insight. On visit with was irritable and required PRNs. On interview the patient reports "sleeping too heavy" and feels groggy. Reports coming in for an STD test and finding out news about the ex [id number]. He reports that her [id number] sent him a text indicating something happened and concern for his children. The patient questioned if the children were okay. Says that he has been "hypervigilant" and "manic". Reports past major depressive episodes and depression starting in the sixth grade. Throughout the interview the patient becomes labile at times about telling his to go back to her ex- so she can be happy. Complains of ongoing testicular pain that has been on and off and started 2 days ago. Requesting nicotine gum and reports withdrawals. Physical Exam Mental Examination Appearance: Unkempt Eye Contact: Maintains Eye Contact Motor Behavior: Pacing and Restless Speech: Tangential and Rambling Mood: Euthymic and Calm Affect: Congruent and Constricted Thought Process: Tangential Hallucinations: None Insight: Poor Judgement: Poor Vital Signs (Past 24 Hours) Last Vital Signs Temp 36.8 C 08/20/25 06:46 Pulse 73 08/20/25 06:48 Resp 18 08/20/25 06:46 BP 123/83 08/20/25 06:48 Pulse Ox 96 08/20/25 06:48 O2 Del Method Room Air 08/20/25 06:48 A physical exam was performed in the ED by Camacho Rubio MD for the purposes of medical clearance. I accept that physical as correct and adequate for the purposes of the inpatient physical exam. Results & Data ([facility]) Current Inpatient Medications Current Inpatient Medications: Current Inpatient Medications Acetaminophen (Acetaminophen 325 Mg Tab) 650 mg PO Q4H PRN PRN Reason: Headache or Minor Fever Stop: 09/15/25 13:02 Al Hydrox/Mg Hydrox/Simethicone (Aluminum/Magnesium Susp 30 Ml Udc) 30 ml PO Q4H PRN PRN Reason: GI Upset Stop: 09/15/25 13:02 Bismuth Subsalicylate (Bismuth Subsalicylate 262 Mg Chew) 2 tab PO Q30M PRN PRN Reason: Loose Stool/Diarrhea Stop: 09/15/25 13:02 Hydroxyzine HCl (Hydroxyzine Hcl 25 Mg Tab) 50 mg PO HSZ PRN PRN Reason: Insomnia Stop: 09/15/25 13:02 Hydroxyzine HCl (Hydroxyzine Hcl 25 Mg Tab) 25 mg PO Q4H PRN PRN Reason: Anxiety Stop: 09/15/25 13:02 Lorazepam (Lorazepam 1 Mg Tab) 1 mg PO Q6 PRN PRN Reason: Severe Anxiety Stop: 09/15/25 13:05 Last Admin: 08/17/25 01:38 Dose: 1 mg Lorazepam (Lorazepam 0.5 Mg Tab) 0.5 mg PO TID [facility] Stop: 09/17/25 13:59 Last Admin: 08/20/25 08:30 Dose: 0.5 mg Lorazepam (Lorazepam 1 Mg Tab) 2 mg PO HS [facility] Stop: 09/18/25 21:59 Last Admin: 08/19/25 21:05 Dose: 2 mg Magnesium Hydroxide (Magnesium Hydroxide Susp 30 Ml Udc) 30 ml PO DAILY PRN PRN Reason: Constipation Stop: 09/15/25 13:02 Nicotine Polacrilex (Nicotine Polacrilex 2 Mg Gum) 1 piece MT Q2H PRN PRN Reason: nicotine craving Stop: 09/16/25 13:20 Olanzapine (Olanzapine 5 Mg Tablet) 5 mg PO Q6 PRN PRN Reason: Agitation or psychosis Stop: 09/15/25 13:04 Last Admin: 08/19/25 13:42 Dose: 5 mg Olanzapine (Olanzapine 5 Mg Tablet) 5 mg PO QAM [facility] Stop: 09/18/25 08:59 Last Admin: 08/20/25 08:25 Dose: 5 mg Olanzapine (Olanzapine 5 Mg Tablet) 15 mg PO HS [facility] Stop: 09/18/25 21:59 Last Admin: 08/19/25 20:48 Dose: 15 mg Propranolol HCl (Propranolol Hcl 10 Mg Tab) 10 mg PO TID [facility] Stop: 09/17/25 13:59 Last Admin: 08/20/25 08:25 Dose: 10 mg Sodium Chloride (Sodium Chloride 0.65% Na Soln 45 Ml ([place])) 1 - 2 sprays NA PRN PRN PRN Reason: Nasal Dryness/Congestion Stop: 09/15/25 13:02 Mental Health & Subst Abuse Tx Psychiatrist Name of Psychiatrist: Joanna Psychiatrist's Date Of Appointment With Psychiatric Provider: TBD Psychiatric Appointment Comment: Blanca Ribeiro through [employer] must schedule due to using [facility]. Therapist Name of Therapist: Joanna Therapist's Date of Therapist Appointment: TBD Therapy Appointment Comment: Blanca Ribeiro through [facility] [employer] must schedule due to using [facility]. Cvt Rn Name of Cvt Rn: BERNIE Ribeiro Phone Number for Cvt Rn: Office: [phone] & Blanca Ribeiro Date of Appointment with Cvt Rn: 08/28/25 Time of Appointment with Cvt Rn: 12:30PM Case Management Appointment Comment: Must bring last three pay stubs. Blanca to schedule [facility] appointment. Post Discharge Appointments Primary Care Physician Name Of Family Doctor/PCP: N/A Contact Information Discharge Discharge Address: [address] [place] [address] [place] [id number]
[2025-08-20 14:39] LABS: Appearance Urine Clear (Clear); Glucose Urine UA Negative (Negative)
[2025-08-21 08:10] LABS: Hematocrit (blood only) 44.5 % (42.0-52.0); Hemoglobin 14.8 g/dL (14.0-18.0); Immature Granulocytes # (auto) 0.02 K/uL (0.01-0.20); Immature Granulocytes % (auto) 0.3 %; Mean Corpuscular Hemoglobin 28.6 pg (25.0-34.0); Mean Corpuscular Volume 85.9 fL (80.0-100.0); Platelet Count 241 K/uL (130-400); RDW Standard Deviation 38.6 fL (36.4-46.3); Red Blood Count 5.18 M/uL (4.70-6.10); White Blood Count 6.72 K/ul (4.8-10.8)
[2025-08-21 08:26] LABS: Anion Gap 5.0 (3-11); Blood Urea Nitrogen 10.0 mg/dl (6-23); Calcium 9.7 mg/dl (8.6-10.3); Carbon Dioxide 30.0 mmol/L (21-32); Chloride 105.0 mmol/L (98-107); Creatinine Clr Calc Pharmacy 140.2 ml/min; Glucose 91.0 mg/dl (70-99(Fasting)); Potassium 4.1 mmol/L (3.5-5.1); Sodium 140.0 mmol/L (136-145)
--- NOTE | 2025-08-21 10:09 | Hospitalist Progress Note ---
Date of Service August 21, 2025 Assessment & Plan (1) Testicular pain, unspecified: Plan: No significant findings on examination. No current discomfort. Scrotal ultrasound ordered and pending (2) Bipolar 1 disorder, current or most recent episode manic, severe: Plan: Continue inpatient psychiatric management Plan Await scrotal ultrasound results. Symptomatic treatment for now Admission and Anticipated Discharge Date Admission Date: August 16, 2025 Subjective Alert and oriented. White blood cell count is 6700. Urinalysis is negative. He is afebrile. Examination of the testicles is unremarkable with no evidence of testicular torsion or palpable mass. He did agree to undergo scrotal ultrasound which has been ordered and is pending. Review of Systems 2 Review of Systems: Constitutionalno fever or chills ENTno blurred vision, no double vision, no epistaxis, no sore throat Respiratoryno cough, no wheezing, no shortness of breath Cardiacno palpitations, no chest pain, no syncope Santosh nausea, vomiting, diarrhea, melena, hematochezia GUno urinary retention, no urinary incontinence, no dysuria, no hematuria. Intermittent left testicular discomfort Musculoskeletalno joint pain, no muscle tenderness Skinno bruising, no rashes, no pruritus Neurono isolated weakness, no paresthesia, no weakness Psychno depression, no anxiety Physical Exam 2 Physical Exam: General-alert and oriented x3, no fever, no chills HEENT-head atraumatic and normocephalic, pupils equal and reactive to light, extraocular muscles intact Neck-no lymphadenopathy or thyromegaly, trachea midline Chest-clear to auscultation. No rales, wheezing or rhonchi Cardiac-regular rate and rhythm, normal S1 and S2 Abdomen-normal bowel sounds, no hepatosplenomegaly GUunremarkable testicular and scrotal exam Extremities-no cyanosis, clubbing, or edema Neuro-cranial nerves II through XII intact, motor and sensory function within normal limits, strength symmetrical, no focal deficits Psych-normal affect, normal mood Results & Data Results & Data Vital Signs (Past 12 Hours) Vital Signs Temp Pulse Resp BP Pulse Ox O2 Del Method 08/21/25 06:51 72 147/101 H 08/21/25 06:50 36.6 C 62 22 135/85 99 Room Air Laboratory Results 08/21/25 07:39 08/21/25 07:39 PG Care Time/CCT Total # of Minutes Spent Total Time Spent with Patient: Total time spent is greater than 50% in coordination of care (as documented) at patient's floor/unit and/or counseling patient: Coding Level of Care Code 79754 SUB INP/OBS CARE 2/35MIN Diagnoses Testicular pain, unspecified N50.819 Bipolar 1 disorder, current or most recent episode manic, severe F31.13
--- NOTE | 2025-08-21 14:01 | Psychiatric Progress Note ---
Date of Service August 21, 2025 Impression / Recommendations Impression Mr. Bae is a 34-year-old man with history of depression, who now presents with features of maryan, including insomnia, talkativeness, flight of ideas, grandiosity, hypersexuality, and hyperreligiosity. Also has an element of paranoia, but did not make any homicidal statements. Fixated on protecting his family though, does have access to guns. Appropriate for admission to the behavioral health unit. He is admitted on a voluntary status. Symptoms are highly consistent with a manic episode, patient has a family history of bipolar disorder. A: Patient is presenting improved sleep and appears less labile and intrusive. Continues to be paranoid at times. Making more rational discharge plans. Complains of intermittent left testicular pain; seen by hospitalist and will pursue ultrasound. UA and general STD testing is unremarkable. Concern for a.m. sedation from morning olanzapine and will split the dose throughout the day. Medically necessary private room due to hypersexuality and impulsive behavior. Overall, I spent a total of 40 minutes on this patient's care, including review of chart/records, direct evaluation of the patient, ordering medication, coordination with nursing, interdisciplinary team meeting, gathered collateral from pt's family and documentation. (1) Bipolar 1 disorder, current or most recent episode manic, severe: Plan 08/21/2025: Discontinue propranolol Dose olanzapine 2.5 mg in the morning and 2.5 mg in the afternoon 08/20/2025: Start nicotine gum 2 mg every 2 hours as needed Urinalysis 08/19/2025: Increase lorazepam to 2 mg at bedtime Increase Olanzapine to 15mg at bedtime Hospitalist consult for urogenital evaluation 08/17/25: Continue Ativan 1 mg 3 times daily and Zyprexa 10 mg nightly as needed Ativan Zyprexa also ordered. patient did except medicines yesterday, but denied them this morning. If he continuously denies medication we may need to pursue an involuntary commitment and forced medications, Given the severity of his symptoms. Staff is gathering collateral from his today. 08/17/25: Continue Ativan 1 mg 3 times daily and Zyprexa 10 mg nightly as needed Ativan Zyprexa also ordered. patient did except medicines yesterday, but denied them this morning. If he continuously denies medication we may need to pursue an involuntary commitment and forced medications, Given the severity of his symptoms. Staff is gathering collateral from his today. 08/16/25: Admit to [facility] on a 201 commitment. encouraged to participate in milieu treatment and group therapy schedule Zyprexa 10 mg nightly as needed Zyprexa and Ativan also ordered in case of agitation typical unit PRNs are also ordered, including Vistaril, Tylenol, and medications for GI upset suicide risk is moderate, since the maryan does increase impulsivity, his mood is labile, and he does have a history of suicide attempts. suicide risk precautions ordered (every 15 minute checks) Suicide Risk Level Suicide Risk Level: Moderate (q15 min suicide checks) Suicide Risk Level Comments: suicide Risk Level: Moderate (q15 min suicide checks) Suicide Risk Level Comments: Moderate due to History of suicide attempts, labile mood and impulsivity but feels safe in the hospital, able to contract for safety and agrees to let staff know should if plan or intent develops, or if patient feels unable to remain safe. Risk Factors Assessment Male: Yes : Yes Do You Have Access To A Gun?: Yes Health Problems: No Mental Health Diagnoses: Yes Substance Use Disorders: No Previous Attempt: Yes Family History of Suicide: No Previous Psychiatric Hospitalization: Yes Hopelessness: No Protective Factors Assessment Mu-Ism Beliefs: Yes : Yes Responsible for Young Children: Yes Employed: Yes ([employer]) Stable Relationships: Yes Supportive Family: Yes Good Rapport with Provider: No Interval History Identifying Information Mr. Bae is a 34-year-old man with history of depression, who now presents with features of maryan, including insomnia, talkativeness, flight of ideas, grandiosity, hypersexuality, and hyperreligiosity. He is admitted on a voluntary status. Chief Complaint Maryan Review of Systems Sleep Information Total Hours of Sleep: 6.5 Sleep Comments: He was up and drowsy several times during the night. Meal Information Percent Meal Consumed - Breakfast: 100 Percent Meal Consumed - Lunch: 100 Percent Meal Consumed - Dinner: 100 Subjective Subjective Patient was seen & assessed and interval progress reviewed with treatment team nursing and social work Overnight slept 6.5 hours. Endorsed a "phenomenal" mood to staff. Highly focused on left testicular pain. On interview he reports having a "even keel" mood. Rates his energy is medium. Says that he slept well. Throughout the interview appears paranoid at times and asking questions as if to seek reassurance. Confirms having depression since teenage years. Says that his biological father had depression but he does not have any more details. He reports a plan to spend time with his family and that his will standby side but if she does not it will be okay. We reflect on his childhood and he reports that his biological parents are too busy to take care of him and that his siblings were at a young age. Complains of a.m. grogginess. Labile at times and becomes tearful. Says that if the medication does not make him feel okay he will stop it; reassured and explained the importance of his treatment. Physical Exam Mental Examination Appearance: Unkempt Eye Contact: Maintains Eye Contact Motor Behavior: Restless Speech: Normal and Circumstantial Mood: Euthymic and Calm Affect: Congruent and Constricted Thought Process: Goal Oriented Thought Content: Preoccupation Hallucinations: None Insight: Poor Judgement: Poor Vital Signs (Past 24 Hours) Last Vital Signs Temp 36.6 C 08/21/25 06:50 Pulse 72 08/21/25 06:51 Resp 22 08/21/25 06:50 BP 147/101 H 08/21/25 06:51 Pulse Ox 99 08/21/25 06:50 O2 Del Method Room Air 08/21/25 06:50 A physical exam was performed in the ED by Camacho Rubio MD for the purposes of medical clearance. I accept that physical as correct and adequate for the purposes of the inpatient physical exam. Results & Data ([facility]) Laboratory Results Laboratory Results - last 24 hr 08/20/25 08/20/25 08/21/25 14:28 14:30 07:39 WBC 6.72 RBC 5.18 Hgb 14.8 Hct 44.5 MCV 85.9 MCH 28.6 MCHC 33.3 RDW Std Deviation 38.6 RDW Coeff of Bravo 12.4 Plt Count 241 MPV 10.9 Immature Gran % (Auto) 0.3 Neut % (Auto) 61.7 Lymph % (Auto) 24.7 [place] % (Auto) 9.8 Eos % (Auto) 2.8 Baso % (Auto) 0.7 Neut # (Auto) 4.14 Lymph # (Auto) 1.66 [place] # (Auto) 0.66 H Eos # (Auto) 0.19 Baso # (Auto) 0.05 Immature Gran # (Auto) 0.02 Sodium 140 Potassium 4.1 Chloride 105 Carbon Dioxide 30 Anion Gap 5 BUN 10 Creatinine 0.97 Est Cr Clr Drug Dosing 140.2 eGFR 103.76 BUN/Creatinine Ratio 10.3 Glucose 91 Calcium 9.7 Urine Color Yellow Urine Appearance Clear Urine pH 6.5 Ur Specific Brady 1.010 Urine Protein Negative Urine Glucose (UA) Negative Urine Ketones Negative Urine Blood Negative Urine Nitrite Negative Urine Bilirubin Negative Urine Urobilinogen Negative Ur Leukocyte Esterase Negative Urine Comment C.trachomatis RNA Pending N.gonorrhoeae RNA Pending Current Inpatient Medications Current Inpatient Medications: Current Inpatient Medications Acetaminophen (Acetaminophen 325 Mg Tab) 650 mg PO Q4H PRN PRN Reason: Headache or Minor Fever Stop: 09/15/25 13:02 Al Hydrox/Mg Hydrox/Simethicone (Aluminum/Magnesium Susp 30 Ml Udc) 30 ml PO Q4H PRN PRN Reason: GI Upset Stop: 09/15/25 13:02 Bismuth Subsalicylate (Bismuth Subsalicylate 262 Mg Chew) 2 tab PO Q30M PRN PRN Reason: Loose Stool/Diarrhea Stop: 09/15/25 13:02 Hydroxyzine HCl (Hydroxyzine Hcl 25 Mg Tab) 50 mg PO HSZ PRN PRN Reason: Insomnia Stop: 09/15/25 13:02 Hydroxyzine HCl (Hydroxyzine Hcl 25 Mg Tab) 25 mg PO Q4H PRN PRN Reason: Anxiety Stop: 09/15/25 13:02 Lorazepam (Lorazepam 1 Mg Tab) 1 mg PO Q6 PRN PRN Reason: Severe Anxiety Stop: 09/15/25 13:05 Last Admin: 08/17/25 01:38 Dose: 1 mg Lorazepam (Lorazepam 1 Mg Tab) 2 mg PO HS [facility] Stop: 09/18/25 21:59 Last Admin: 08/20/25 20:47 Dose: 2 mg Magnesium Hydroxide (Magnesium Hydroxide Susp 30 Ml Udc) 30 ml PO DAILY PRN PRN Reason: Constipation Stop: 09/15/25 13:02 Nicotine Polacrilex (Nicotine Polacrilex 2 Mg Gum) 1 piece MT Q2H PRN PRN Reason: nicotine craving Stop: 09/16/25 13:20 Olanzapine (Olanzapine 5 Mg Tablet) 5 mg PO Q6 PRN PRN Reason: Agitation or psychosis Stop: 09/15/25 13:04 Last Admin: 08/20/25 14:03 Dose: 5 mg Olanzapine (Olanzapine 5 Mg Tablet) 5 mg PO QAM [facility] Stop: 09/18/25 08:59 Last Admin: 08/21/25 07:30 Dose: 5 mg Olanzapine (Olanzapine 5 Mg Tablet) 15 mg PO HS [facility] Stop: 09/18/25 21:59 Last Admin: 08/20/25 20:48 Dose: 15 mg Propranolol HCl (Propranolol Hcl 10 Mg Tab) 10 mg PO TID [facility] Stop: 09/17/25 13:59 Last Admin: 08/21/25 13:32 Dose: 10 mg Sodium Chloride (Sodium Chloride 0.65% Na Soln 45 Ml ([place])) 1 - 2 sprays NA PRN PRN PRN Reason: Nasal Dryness/Congestion Stop: 09/15/25 13:02 Mental Health & Subst Abuse Tx Psychiatrist Name of Psychiatrist: Joanna Psychiatrist's Date Of Appointment With Psychiatric Provider: TBD Psychiatric Appointment Comment: Blanca Ribeiro through [employer] must schedule due to using [facility] [place]. Therapist Name of Therapist: Joanna Therapist's Date of Therapist Appointment: TBD Therapy Appointment Comment: Blanca Ribeiro through [employer] must schedule due to using [facility] [place]. Principal Consulting Engineer Name of Principal Consulting Engineer: [employer] [facility] - Blanca Ribeiro Phone Number for Principal Consulting Engineer: Office: [phone] & Blanca Ribeiro Date of Appointment with Principal Consulting Engineer: 08/28/25 Time of Appointment with Principal Consulting Engineer: 12:30PM Case Management Appointment Comment: Must bring last three pay stubs. Blanca to schedule [facility] appointment. Post Discharge Appointments Primary Care Physician Name Of Family Doctor/PCP: N/A Contact Information Discharge Discharge Address: [address] [facility] [place] [address]
--- NOTE | 2025-08-21 15:31 | Ultrasound Report ---
ULTRASOUND TESTES AND SCROTUM CLINICAL HISTORY: Left testicular pain COMPARISON STUDY: No priors TECHNIQUE: Real-time, grayscale, and color Doppler sonography of the testes and scrotum is performed. Images are reviewed in the transverse and longitudinal planes. FINDINGS: The testes are normal in size and homogeneous in echotexture. The right testis measures 4.1 x 2.3 x 3 .1 cm and the left testis measures 4.1 x 2.2 x 3.0 cm. No intratesticular mass is seen. Testicular bl ood flow is normal and symmetric. Normal Doppler arterial and venous waveforms are identified in both testes. The epididymal heads are normal in appearance. A 3 mm epididymal head cyst is noted on the left. A left-sided varicocele measures up to 2 mm. No right-sided varicocele is identified and no hydrocele is seen. IMPRESSION: 1. No acute sonographic abnormality is seen involving the testes or scrotum. 2. Small left-sided varicocele. ACT 112: Negative or not required by law. Electronically signed by: Hank Altamirano M.D. 08/21/2025 3:30 PM
[2025-08-22 06:09] VITALS: O2SAT 97
[2025-08-22] MEDS: OLANZAPINE 2.5 MG TAB PO SCH (08:26)
--- NOTE | 2025-08-22 09:16 | Hospitalist Progress Note ---
Date of Service August 22, 2025 Assessment & Plan (1) Testicular pain, unspecified: Plan: No significant findings on examination. No current discomfort. Scrotal ultrasound unremarkable (2) Bipolar 1 disorder, current or most recent episode manic, severe: Plan: Continue inpatient psychiatric management Plan Symptomatic treatment of recurrent testicular pain is warranted. No further testing indicated. The hospitalist service will sign off here. Admission and Anticipated Discharge Date Admission Date: August 16, 2025 Subjective The patient is currently asymptomatic. No significant findings on the testicular scrotal ultrasound. He does have a tiny left epididymal head cyst and a tiny left varicocele of no clinical consequence. Urine analysis is unremarkable. He remains afebrile. No need for any further evaluation at this time. As needed symptomatic treatment is warranted for any recurrent discomfort. The hospitalist team will sign off here Results & Data Results & Data Vital Signs (Past 12 Hours) Vital Signs Temp Pulse Resp BP Pulse Ox O2 Del Method 08/22/25 06:08 36.4 C L 60 16 130/95 97 Room Air Laboratory Results 08/21/25 07:39 08/21/25 07:39 PG Care Time/CCT Total # of Minutes Spent Total Time Spent with Patient: Total time spent is greater than 50% in coordination of care (as documented) at patient's floor/unit and/or counseling patient: Coding Level of Care Code 13897 SUB INP/OBS CARE 2/35MIN Diagnoses Testicular pain, unspecified N50.819 Bipolar 1 disorder, current or most recent episode manic, severe F31.13
[2025-08-22 12:27] LABS: Chlam trach RNA(Genit,Ureth,Ur Not Detected (NotDetected); GC(Neis gon)RNA(Genit,Ureth,Ur Not Detected (NotDetected)
--- NOTE | 2025-08-22 12:32 | Psychiatric Progress Note ---
Date of Service August 22, 2025 Impression / Recommendations Impression Mr. Bae is a 34-year-old man with history of depression, who now presents with features of maryan, including insomnia, talkativeness, flight of ideas, grandiosity, hypersexuality, and hyperreligiosity. Also has an element of paranoia, but did not make any homicidal statements. Fixated on protecting his family though, does have access to guns. Appropriate for admission to the behavioral health unit. He is admitted on a voluntary status. Symptoms are highly consistent with a manic episode, patient has a family history of bipolar disorder. A: Patient has demonstrated less lability and intrusiveness. Continues to demonstrate limited insight however voiced he will stay adherent to medications postdischarge. Presents a more rational discharge plan. Sleeping well with sleep aids. Collateral from reports he is approaching baseline. Ultrasound of testicles revealed no intratesticular mass and benign cyst and varicocele. Medically necessary private room due to hypersexuality and impulsive behavior. Overall, I spent a total of 35 minutes on this patient's care, including review of chart/records, direct evaluation of the patient, ordering medication, coordination with nursing, interdisciplinary team meeting, gathered collateral from pt's family and documentation. (1) Bipolar 1 disorder, current or most recent episode manic, severe: Plan 08/22/2025: Continue medications and treatment plan 08/21/2025: Discontinue propranolol Dose olanzapine 2.5 mg in the morning and 2.5 mg in the afternoon 08/20/2025: Start nicotine gum 2 mg every 2 hours as needed Urinalysis 08/19/2025: Increase lorazepam to 2 mg at bedtime Increase Olanzapine to 15mg at bedtime Hospitalist consult for urogenital evaluation 08/17/25: Continue Ativan 1 mg 3 times daily and Zyprexa 10 mg nightly as needed Ativan Zyprexa also ordered. patient did except medicines yesterday, but denied them this morning. If he continuously denies medication we may need to pursue an involuntary commitment and forced medications, Given the severity of his symptoms. Staff is gathering collateral from his today. 08/17/25: Continue Ativan 1 mg 3 times daily and Zyprexa 10 mg nightly as needed Ativan Zyprexa also ordered. patient did except medicines yesterday, but denied them this morning. If he continuously denies medication we may need to pursue an involuntary commitment and forced medications, Given the severity of his symptoms. Staff is gathering collateral from his today. 08/16/25: Admit to [facility] on a 201 commitment. encouraged to participate in milieu treatment and group therapy schedule Zyprexa 10 mg nightly as needed Zyprexa and Ativan also ordered in case of agitation typical unit PRNs are also ordered, including Vistaril, Tylenol, and medications for GI upset suicide risk is moderate, since the maryan does increase impulsivity, his mood is labile, and he does have a history of suicide attempts. suicide risk precautions ordered (every 15 minute checks) Suicide Risk Level Suicide Risk Level: Moderate (q15 min suicide checks) Suicide Risk Level Comments: suicide Risk Level: Moderate (q15 min suicide checks) Suicide Risk Level Comments: Moderate due to History of suicide attempts, labile mood and impulsivity but feels safe in the hospital, able to contract for safety and agrees to let staff know should if plan or intent develops, or if patient feels unable to remain safe. Risk Factors Assessment Male: Yes : Yes Do You Have Access To A Gun?: Yes Health Problems: No Mental Health Diagnoses: Yes Substance Use Disorders: No Previous Attempt: Yes Family History of Suicide: No Previous Psychiatric Hospitalization: Yes Hopelessness: No Protective Factors Assessment [employer] Beliefs: Yes : Yes Responsible for Young Children: Yes Employed: Yes ([employer]) Stable Relationships: Yes Supportive Family: Yes Good Rapport with Provider: No Interval History Identifying Information Mr. Bae is a 34-year-old man with history of depression, who now presents with features of maryan, including insomnia, talkativeness, flight of ideas, grandiosity, hypersexuality, and hyperreligiosity. He is admitted on a voluntary status. Chief Complaint Maryan Review of Systems Sleep Information Total Hours of Sleep: 6.5 Sleep Comments: He was up and drowsy several times during the night. Meal Information Percent Meal Consumed - Breakfast: 100 Percent Meal Consumed - Lunch: 100 Percent Meal Consumed - Dinner: 100 Subjective Subjective Patient was seen & assessed and interval progress reviewed with treatment team nursing and social work Slept 6.5 hours. Had ultrasound of testicles today. On interview he reports feeling "pretty darn good". Says that he slept well and that it was not disrupted. Says he feels less sedated this morning. Endorses a plan to spend time with his family, start a new job at the end of next month with [employer]. Physical Exam Mental Examination Appearance: Unkempt Eye Contact: Maintains Eye Contact Motor Behavior: Restless Speech: Normal and Circumstantial Mood: Euthymic and Calm Affect: Congruent and Constricted Thought Process: Goal Oriented Thought Content: Preoccupation Hallucinations: None Insight: Poor Judgement: Poor Vital Signs (Past 24 Hours) Last Vital Signs Temp 36.4 C L 08/22/25 06:08 Pulse 60 08/22/25 06:08 Resp 16 08/22/25 06:08 BP 130/95 08/22/25 06:08 Pulse Ox 97 08/22/25 06:08 O2 Del Method Room Air 08/22/25 06:08 A physical exam was performed in the ED by Camacho Rubio MD for the purposes of medical clearance. I accept that physical as correct and adequate for the purposes of the inpatient physical exam. Results & Data ([facility]) Laboratory Results Laboratory Results - last 24 hr 08/20/25 14:30 C.trachomatis RNA Not Detected N.gonorrhoeae RNA Not Detected Current Inpatient Medications Current Inpatient Medications: Current Inpatient Medications Acetaminophen (Acetaminophen 325 Mg Tab) 650 mg PO Q4H PRN PRN Reason: Headache or Minor Fever Stop: 09/15/25 13:02 Al Hydrox/Mg Hydrox/Simethicone (Aluminum/Magnesium Susp 30 Ml Udc) 30 ml PO Q4H PRN PRN Reason: GI Upset Stop: 09/15/25 13:02 Bismuth Subsalicylate (Bismuth Subsalicylate 262 Mg Chew) 2 tab PO Q30M PRN PRN Reason: Loose Stool/Diarrhea Stop: 09/15/25 13:02 Hydroxyzine HCl (Hydroxyzine Hcl 25 Mg Tab) 50 mg PO HSZ PRN PRN Reason: Insomnia Stop: 09/15/25 13:02 Hydroxyzine HCl (Hydroxyzine Hcl 25 Mg Tab) 25 mg PO Q4H PRN PRN Reason: Anxiety Stop: 09/15/25 13:02 Lorazepam (Lorazepam 1 Mg Tab) 1 mg PO Q6 PRN PRN Reason: Severe Anxiety Stop: 09/15/25 13:05 Last Admin: 08/17/25 01:38 Dose: 1 mg Lorazepam (Lorazepam 1 Mg Tab) 2 mg PO HS DARRION Stop: 09/18/25 21:59 Last Admin: 08/21/25 20:34 Dose: 2 mg Magnesium Hydroxide (Magnesium Hydroxide Susp 30 Ml Udc) 30 ml PO DAILY PRN PRN Reason: Constipation Stop: 09/15/25 13:02 Nicotine Polacrilex (Nicotine Polacrilex 2 Mg Gum) 1 piece MT Q2H PRN PRN Reason: nicotine craving Stop: 09/16/25 13:20 Olanzapine (Olanzapine 5 Mg Tablet) 5 mg PO Q6 PRN PRN Reason: Agitation or psychosis Stop: 09/15/25 13:04 Last Admin: 08/20/25 14:03 Dose: 5 mg Olanzapine (Olanzapine 5 Mg Tablet) 15 mg PO HS DARRION Stop: 09/18/25 21:59 Last Admin: 08/21/25 20:33 Dose: 15 mg Olanzapine (Olanzapine 2.5 Mg Tab) 2.5 mg PO BID@0800,1400 DARRION Stop: 09/21/25 07:59 Last Admin: 08/22/25 08:26 Dose: 2.5 mg Sodium Chloride (Sodium Chloride 0.65% Na Soln 45 Ml ([place])) 1 - 2 sprays NA PRN PRN PRN Reason: Nasal Dryness/Congestion Stop: 09/15/25 13:02 Mental Health & Subst Abuse Tx Psychiatrist Name of Psychiatrist: Joanna Psychiatrist's Date Of Appointment With Psychiatric Provider: TBD Psychiatric Appointment Comment: Blanca Ribeiro through [facility] must schedule due to using [facility]. Therapist Name of Therapist: Joanna Therapist's Date of Therapist Appointment: TBD Therapy Appointment Comment: Blanca Ribeiro through [facility] must schedule due to using [facility]. Liberal Arts Dean Name of Liberal Arts Dean: [employer] Melinda - Blanca Ribeiro Phone Number for Liberal Arts Dean: Office: [phone] & Blanca Ribeiro Date of Appointment with Liberal Arts Dean: 08/28/25 Time of Appointment with Liberal Arts Dean: 12:30PM Case Management Appointment Comment: Must bring last three pay stubs. Blanca to schedule [facility] appointment. Post Discharge Appointments Primary Care Physician Name Of Family Doctor/PCP: N/A Contact Information Discharge Discharge Address: [address] [place] [id number]
[2025-08-22] MEDS: NICOTINE POLACRILEX 2 MG GUM MT PRN (18:18)
[2025-08-23 06:50] VITALS: BP 139/90; RESP 18; TEMP 97.9
--- NOTE | 2025-08-23 09:55 | Discharge Summary ---
Date of Service August 23, 2025 History of Present Illness Patient is a 34-year-old man with a reported history of depression and 1 past psychiatric hospitalization, but not previously known to this department. He was brought to the emergency room by his , due to recent changes in behavior. Once in the emergency room, patient fixated on the possibility of having sexually transmitted disease, since he has a spot on his groin that has been present for more than 10 years. It then came out that he has been more paranoid with some reckless behavior. He has been spending time in the [place] thinking about protecting the family, then locked himself out of the house and broke glass in the doors in order to let himself in, resulting in a cut to his left thumb. In the emergency room, it was noted that he was tangential and hyperverbal. He agreed to sign in on a voluntary for psychiatric valuation. He did receive Zyprexa 5 mg p.o. downstairs before arrival to the [facility]. I met with the patient privately in his room. He says "if I solve my own set up, I know I be smart and it would mean God is giving me a second chance." He spoke of many topics, including his past psychiatric treatment and history of suicide attempts. Also spoke about his childhood and time in the . He says "I have struggled with every single addiction", referring to food, pornography, tobacco, alcohol and marijuana. He said he has not used any substances recently though. Several times, he made hypersexual statements, but was apologetic about it. He also spoke frequently about God and "[place] being my Lord and Savior." He was listening to Anabaptism music in his room, said it helps him deal with stress. He was guarded about the paranoid content. He said a friend took him off to something (which she would not clarify), and that the patient then sent messages to 2 people, threatening to press charges if they "do anything." He then believes he saw someone stalking him 2 days ago. They were in their car outside his [place] and "looked like a ghost" when they saw him walk by. Also believes he saw someone in the wells when it was dark walking around with a headlamp on. This then led to him patrolling the wells near his house. He denies making any plans to harm anyone. He also denies suicidal ideation. Says he can "see in the shadows", does not clearly is having any true visual hallucinations. Also denies auditory hallucinations. in addition to paranoia about being stopped, he is possibly delusional about the legitimacy of his sons (there from his first marriage, and ways he may not be the father). Since on the unit, he has had a slightly labile affect, with some sudden irritability towards certain staff. He is hyperverbal and tangential, but has remained relatively calm so far. Discussed the idea that he may be experiencing a manic episode, and may have bipolar disorder. He said "I really do not think that is true", and believes he will not need to take medication. Physical Exam Mental Examination Appearance: Unkempt Eye Contact: Maintains Eye Contact Motor Behavior: Unremarkable Speech: Normal Mood: Euthymic and Calm Affect: Appropriate and Congruent Thought Process: Intact and Linear Thought Content: Intact Hallucinations: None Insight: Fair Judgement: Fair Vital Signs (Past 24 Hours) Last Vital Signs Temp 36.6 C 08/23/25 06:48 Pulse 89 08/23/25 06:48 Resp 18 08/23/25 06:48 BP 139/90 08/23/25 06:48 Pulse Ox 97 08/22/25 06:08 O2 Del Method Room Air 08/23/25 06:48 A physical exam was performed in the ED by Camacho Rubio MD for the purposes of medical clearance. I accept that physical as correct and adequate fo r the purposes of the inpatient physical exam. Principal Diagnosis Bipolar 1 Disorder, most recent episode Maryan Psychiatric Data See daily stay summary. In short, safety was maintained and the patient was cooperative with care. Medication changes included starting Olanzapine 15mg HS and lorazepam taper for sleep and they tolerated this well. A family session was held and safety plan was completed prior to discharge. Pt has a history of major depression, who now presents with features of maryan, including insomnia, talkativeness, flight of ideas, grandiosity, hyper-sexuality, and hyper- religiosity. Presenting paranoia and fixated on protecting his family. Admitted on a voluntary status. Family h/o bipolar disorder in father. Initially patient presented poor insight and was intrusive with peers. He was started on Olanzapine for mood stabilization and Lorazepam taper for sleep. He tolerated the medications well and demonstrated more stable mood, less mood lability, improved insight, and was presenting a more rational discharge plan. Discharged home with and children.Family secured guns. Day of Discharge Assessment Today the patient voices readiness for discharge. They note improvement in mood and deny thoughts to harm self or others. Thoughts remain organized and they are improved from admission. There is no evidence of psychosis. They agree to take mediations as prescribed and keep follow-up appointments. They are stable for discharge to outpatient level of care. Overall, I spent a total of 35 minutes with this case including review of chart records, nursing report, review of lab work, direct evaluation of the patient at bedside, counseling the patient, multidisciplinary team meeting, orders, and documentation in the electronic health record. Transition of Care Transition Of Care Record: was reviewed with the patient Advance Directives Advance Directives Information Provided: Yes Advance Directives: No Mental Health Advance Directive: No Advance Directives on File: No Living Will: No Power of Conference Assistant: No Advance Directives Reason:: Declines as Mental Health Visit. Suicide Risk Level Suicide Risk Level Comments: suicide Risk Level: Moderate (q15 min suicide checks) Suicide Risk Level Comments: Moderate due to History of suicide attempts, labile mood and impulsivity but feels safe in the hospital, able to contract for safety and agrees to let staff know should if plan or intent develops, or if patient feels unable to remain safe. Risk Factors Assessment Male: Yes : Yes Do You Have Access To A Gun?: Yes Health Problems: No Mental Health Diagnoses: Yes Substance Use Disorders: No Previous Attempt: Yes Family History of Suicide: No Previous Psychiatric Hospitalization: Yes Hopelessness: No Protective Factors Assessment Caodaism Beliefs: Yes : Yes Responsible for Young Children: Yes Employed: Yes ([employer]) Stable Relationships: Yes Supportive Family: Yes Good Rapport with Provider: No Discharge Data Consultations 08/19/25 14:46 Consult Hospitalist Routine Lab Results 08/16/25 08/16/25 08/16/25 06:02 06:15 13:05 WBC 10.22 RBC 5.19 Hgb 14.8 Hct 44.0 MCV 84.8 MCH 28.5 MCHC 33.6 RDW Std Deviation 39.4 RDW Coeff of Bravo 12.8 Plt Count 263 MPV 10.9 Immature Gran % (Auto) 0.5 Neut % (Auto) 75.0 Lymph % (Auto) 15.1 [place]mort[place] % (Auto) 8.6 Eos % (Auto) 0.2 Baso % (Auto) 0.6 Neut # (Auto) 7.67 H Lymph # (Auto) 1.54 [place]morton # (Auto) 0.88 H Eos # (Auto) 0.02 Baso # (Auto) 0.06 Immature Gran # (Auto) 0.05 Sodium 138 Potassium 3.7 Chloride 103 Carbon Dioxide 25 Anion Gap 10 BUN 14 Creatinine 1.15 Est Cr Clr Drug Dosing 118.3 eGFR 84.59 BUN/Creatinine Ratio 12.2 Glucose 144 H Estimat Average Glucose Hemoglobin A1c Calcium 9.8 Total Bilirubin 0.7 AST 23 ALT 24 Alkaline Phosphatase 66 Total Protein 7.5 Albumin 4.8 Globulin 2.7 Albumin/Globulin Ratio 1.8 Triglycerides Cholesterol LDL Cholesterol, Calc VLDL Cholesterol, Calc HDL Cholesterol Cholesterol/HDL Ratio TSH 1.924 Urine Color Yellow Urine Appearance Clear Urine pH 6.5 Ur Specific Dimock 1.003 Urine Protein Negative Urine Glucose (UA) Negative Urine Ketones Negative Urine Blood Negative Urine Nitrite Negative Urine Bilirubin Negative Urine Urobilinogen Negative Ur Leukocyte Esterase Negative Urine Comment Salicylates < 3.0 L Urine Opiates Screen Neg Ur Methadone, Qual Neg Urine Fentanyl Screen Neg Acetaminophen < 3 L Urine Barbiturates Neg Ur Phencyclidine (PCP) Neg U Amphetamin/Meth Scrn Neg MDMA (Ecstasy) Screen Neg U Benzodiazepines Scrn Neg Ur Cocaine Metabolite Neg U Marijuana (THC) Screen Neg Ethyl Alcohol mg/dL < 10.0 C.trachomatis RNA Not Detected N.gonorrhoeae RNA Not Detected SARS-CoV-2, RNA, NAAT NEGATIVE 08/19/25 08/20/25 08/20/25 08:18 14:28 14:30 WBC RBC Hgb Hct MCV MCH MCHC RDW Std Deviation RDW Coeff of Bravo Plt Count MPV Immature Gran % (Auto) Neut % (Auto) Lymph % (Auto) [place]mort[place] % (Auto) Eos % (Auto) Baso % (Auto) Neut # (Auto) Lymph # (Auto) [place] # (Auto) Eos # (Auto) Baso # (Auto) Immature Gran # (Auto) Sodium Potassium Chloride Carbon Dioxide Anion Gap BUN Creatinine Est Cr Clr Drug Dosing eGFR BUN/Creatinine Ratio Glucose Estimat Average Glucose 105 Hemoglobin A1c 5.3 Calcium Total Bilirubin AST ALT Alkaline Phosphatase Total Protein Albumin Globulin Albumin/Globulin Ratio Triglycerides 142 Cholesterol 198 LDL Cholesterol, Calc 128 VLDL Cholesterol, Calc 28 HDL Cholesterol 42 Cholesterol/HDL Ratio 4.7 TSH Urine Color Yellow Urine Appearance Clear Urine pH 6.5 Ur Specific Dimock 1.010 Urine Protein Negative Urine Glucose (UA) Negative Urine Ketones Negative Urine Blood Negative Urine Nitrite Negative Urine Bilirubin Negative Urine Urobilinogen Negative Ur Leukocyte Esterase Negative Urine Comment Salicylates Urine Opiates Screen Ur Methadone, Qual Urine Fentanyl Screen Acetaminophen Urine Barbiturates Ur Phencyclidine (PCP) U Amphetamin/Meth Scrn MDMA (Ecstasy) Screen U Benzodiazepines Scrn Ur Cocaine Metabolite U Marijuana (THC) Screen Ethyl Alcohol mg/dL C.trachomatis RNA Not Detected N.gonorrhoeae RNA Not Detected SARS-CoV-2, RNA, NAAT 08/21/25 07:39 WBC 6.72 RBC 5.18 Hgb 14.8 Hct 44.5 MCV 85.9 MCH 28.6 MCHC 33.3 RDW Std Deviation 38.6 RDW Coeff of Bravo 12.4 Plt Count 241 MPV 10.9 Immature Gran % (Auto) 0.3 Neut % (Auto) 61.7 Lymph % (Auto) 24.7 [place] % (Auto) 9.8 Eos % (Auto) 2.8 Baso % (Auto) 0.7 Neut # (Auto) 4.14 Lymph # (Auto) 1.66 [place]rockmorton # (Auto) 0.66 H Eos # (Auto) 0.19 Baso # (Auto) 0.05 Immature Gran # (Auto) 0.02 Sodium 140 Potassium 4.1 Chloride 105 Carbon Dioxide 30 Anion Gap 5 BUN 10 Creatinine 0.97 Est Cr Clr Drug Dosing 140.2 eGFR 103.76 BUN/Creatinine Ratio 10.3 Glucose 91 Estimat Average Glucose Hemoglobin A1c Calcium 9.7 Total Bilirubin AST ALT Alkaline Phosphatase Total Protein Albumin Globulin Albumin/Globulin Ratio Triglycerides Cholesterol LDL Cholesterol, Calc VLDL Cholesterol, Calc HDL Cholesterol Cholesterol/HDL Ratio TSH Urine Color Urine Appearance Urine pH Ur Specific Dimock Urine Protein Urine Glucose (UA) Urine Ketones Urine Blood Urine Nitrite Urine Bilirubin Urine Urobilinogen Ur Leukocyte Esterase Urine Comment Salicylates Urine Opiates Screen Ur Methadone, Qual Urine Fentanyl Screen Acetaminophen Urine Barbiturates Ur Phencyclidine (PCP) U Amphetamin/Meth Scrn MDMA (Ecstasy) Screen U Benzodiazepines Scrn Ur Cocaine Metabolite U Marijuana (THC) Screen Ethyl Alcohol mg/dL C.trachomatis RNA N.gonorrhoeae RNA SARS-CoV-2, RNA, NAAT Hospital Course (1) Bipolar 1 disorder, current or most recent episode manic, severe: Plan 08/22/2025: Continue medications and treatment plan 08/21/2025: Discontinue propranolol Dose olanzapine 2.5 mg in the morning and 2.5 mg in the afternoon 08/20/2025: Start nicotine gum 2 mg every 2 hours as needed Urinalysis 08/19/2025: Increase lorazepam to 2 mg at bedtime Increase Olanzapine to 15mg at bedtime Hospitalist consult for urogenital evaluation 08/17/25: Continue Ativan 1 mg 3 times daily and Zyprexa 10 mg nightly as needed Ativan Zyprexa also ordered. patient did except medicines yesterday, but denied them this morning. If he continuously denies medication we may need to pursue an involuntary commitment and forced medications, Given the severity of his symptoms. Staff is gathering collateral from his today. 08/17/25: Continue Ativan 1 mg 3 times daily and Zyprexa 10 mg nightly as needed Ativan Zyprexa also ordered. patient did except medicines yesterday, but denied them this morning. If he continuously denies medication we may need to pursue an involuntary commitment and forced medications, Given the severity of his symptoms. Staff is gathering collateral from his today. 08/16/25: Admit to [facility] on a 201 commitment. encouraged to participate in milieu treatment and group therapy schedule Zyprexa 10 mg nightly as needed Zyprexa and Ativan also ordered in case of agitation typical unit PRNs are also ordered, including Vistaril, Tylenol, and medicatio ns for GI upset suicide risk is moderate, since the maryan does increase impulsivity, his mood is labile, and he does have a history of suicide attempts. suicide risk precautions ordered (every 15 minute checks) Mental Health & Subst Abuse Tx Psychiatrist Name of Psychiatrist: oJanna Psychiatrist's Date Of Appointment With Psychiatric Provider: TBD Psychiatric Appointment Comment: Blanca Ribeiro through [employer] must schedule due to using [facility] funding. Psychiatrist Release of Information: Obtained, Reviewed and Signed Therapist Name of Therapist: Joanna Therapist's Date of Therapist Appointment: TBD Therapy Appointment Comment: Blanca Ribeiro through [employer] must schedule due to using [facility] funding. Therapist Release of Information: Obtained, Reviewed and Signed Oil Refiner Name of Oil Refiner: BERNIE Lawrence - Blanca Ribeiro Phone Number for Oil Refiner: Office: [phone] & Blanca Ribeiro Date of Appointment with Oil Refiner: 08/28/25 Time of Appointment with Oil Refiner: 12:30PM Case Management Appointment Comment: Must bring last three pay stubs. Blanca to schedule [facility] appointment. Oil Refiner Release of Information: Obtained, Reviewed and Signed Post Discharge Appointments Primary Care Physician Name Of Family Doctor/PCP: N/A Contact Information Discharge Discharge Address: [address] [place] [address] [id number] Discharge Plan Discharge Items Patient Disposition: Home - Self-Care Reason For Visit: UNSPECIFIED PSYCHOSIS Discharge Diagnosis: Bipolar 1 Disorder, most recent episode manic, severe Condition on Discharge: Fair Activity: Resume your previous activity Non-emergency contact: Primary Care Provider, Psychiatrist and Therapist Call non-emergency contact if: you have any medication questions and your symptoms worsen Follow-up/Referrals: PCP,NO [Primary Care Provider] - Diet: Regular Addtl Attending Provider Instructions: Continue Olanzapine 15mg at bedtime Take Lorazepam 1mg at bedtime for 1 week, then take Lorazepam 1mg NEEDED for sleep Continue medications and see your outpatient psychiatrist. Olanzapine is protective for both depression and maryan. Focus on self care. Avoid caffeine/energy drinks. No food 2 hours prior to sleep. Maintain a consistent sleep/wake time. These steps will help you sleep be tter. Pending Studies at Discharge: No Stand-Alone Forms: My [facility] Risk, Smoking Cessation Medications and DC Order Prescriptions: New nicotine (polacrilex) [Nicorette] 2 mg Gum 2 mg MT Q2H PRN (Reason: nicotine cravings) Qty: 1 0RF lorazepam 1 mg Tablet See Rx Instructions .ROUTE .COMPLEX Qty: 14 0RF Rx Instructions: Take 1 tablet at bedtime for 1 week, then take 1 tablet NEEDED for sleep olanzapine 15 mg tablet 15 mg PO HS Qty: 30 0RF Discharge Orders: Discharge Order (Routine); Ordered 08/23/25 Ordered By: Dusty Shipman Admission Data Admit Date/Time: 08/16/25 13:03 Attending Provider: Dusty Shipman Admit Provider: Franchesca Donovan Primary Care Provider: PCP,NO Other Providers: Franchesca Donovan; Dave Le Coding [place] [address] D/C day mgmt > 30 min Patient Type Established History Detailed Exam Detailed Medical Decision Making High Complexity Diagnoses Bipolar 1 disorder, current or most recent episode manic, severe F31.13
[2025-08-23 10:39] VITALS: PULSE 76
== END 2025-08-23 11:00 | disposition home or self-care (01) | DRG 885 ==
LOC: ED 05:41 → 3S 13:03 → SUATTDRO 13:03 → 3S 14:02